=== PATIENT | male | born 1950 | race Caucasian/White ===

== ENCOUNTER 2020-05-06 09:47 | Inpatient (IN) | payer OTHER, SELFPAY ==
[2020-05-06] VITALS (18 sets, daily range): BP systolic 114–161; BP diastolic 66–99; PULSE 50–109; RESP 13–20; TEMP 36.6–37.9; O2SAT 93–98; BMI 31.4
--- NOTE | 2020-05-06 | XR_ITS ---
WS: [id number] C-ARM RADIOGRAPHS LEFT HIP; 3 IMAGES HISTORY: ORIF LT HIP RAZIA IMAGES COMPARISON: 05/06/2020 Intraoperative imaging during short intramedullary plate and gamma nail placement LEFT intertrochante erich hip fracture. Fracture in good position and alignment. XR/XR hip LT 2-3V wo/w pel* [id number] IMPRESSION: Intraoperative imaging during ORIF LEFT hip fracture.
--- NOTE | 2020-05-06 | SCC_ITS ---
Procedure Done: Closed reduction with intramedullary nailing left intertrochanteric hip fracture 68.0 seconds of fluoroscopic guidance, for a cumulative dose of 14.54 mGy, was provided to Dr. Sandoval by the radiology department. C-arm images of the LEFT hip were saved for the patient's permanent record. [facility]
--- NOTE | 2020-05-06 10:10 | XRR_ITS ---
PROCEDURE INFORMATION: Exam: XR Left Femur Exam date and time: 05/06/2020 11:53 AM Age: 69 years old Clinical indication: Injury or trauma; Initial encounter; Blunt trauma; Hip and thigh or upper leg and knee; Left; Injury date: 05/06/20; Injury details: Fall from ladder TECHNIQUE: Imaging protocol: XR Left femur. Views: 2 views. COMPARISON: No relevant prior studies available. FINDINGS: Bones/joints: Acute comminuted ntratrochanteric fracture of the proximal left femur, with marked varus deformity. Left knee arthroplasty. Degenerative change. Soft tissues: Soft tissue prominence. XR/XR femur LT min 2V* [id number] IMPRESSION: Acute comminuted ntratrochanteric fracture of the proximal left femur, with marked varus deformity.
--- NOTE | 2020-05-06 10:10 | XRR_ITS ---
PROCEDURE INFORMATION: Exam: XR Left Hip with Pelvis when Performed Exam date and time: 05/06/2020 11:55 AM Age: 69 years old Clinical indication: Pain and injury or trauma; Initial encounter; Blunt trauma (contusions or hematomas); Hip pain; Left hip; Injury date: 05/06/20; Injury details: Fall from ladder TECHNIQUE: Imaging protocol: XR Left hip with pelvis when performed. Views: 2 or 3 views. COMPARISON: No relevant prior studies available. FINDINGS: Bones/joints: Acute comminuted ntratrochanteric fracture of the proximal left femur, with marked varus deformity. Degenerative change. Soft tissues: Soft tissue prominence. XR/XR hip LT 2-3V wo/w pel* [id number] IMPRESSION: Acute comminuted ntratrochanteric fracture of the proximal left femur, with marked varus deformity.
--- NOTE | 2020-05-06 10:10 | XRR_ITS ---
PROCEDURE INFORMATION: Exam: XR Cervical Spine, 2 or 3 Views Exam date and time: 05/06/2020 11:55 AM Age: 69 years old Clinical indication: Injury or trauma; Initial encounter; Blunt trauma; Injury date: 05/06/20; Injury details: Fall from ladder TECHNIQUE: Imaging protocol: XR of the cervical spine, 2 or 3 views. COMPARISON: No relevant prior studies available. FINDINGS: Vertebrae: Partial obscuration of the C6 and C7 vertebrae. No acute bony injury or malalignment in the incompletely visualized cervical spine. Degenerative change and diminished cervical lordosis. Soft tissues: Ligamentous calcification. XR/XR cervical spine 3V* [id number] IMPRESSION: Partial obscuration of the C6 and C7 vertebrae. No acute bony injury or malalignment in the incompletely visualized cervical spine.
--- NOTE | 2020-05-06 10:10 | XRR_ITS ---
PROCEDURE INFORMATION: Exam: XR Chest, 1 View Exam date and time: 05/06/2020 11:53 AM Age: 69 years old Clinical indication: Injury or trauma; Initial encounter; Blunt trauma (contusions or hematomas); Injury date: 05/06/20; Injury details: Fall from ladder TECHNIQUE: Imaging protocol: XR of the chest Views: 1 view. COMPARISON: CT chest w con* [id number] 04/10/2017 9:48 AM FINDINGS: Lungs: No acute airspace disease. Pleural space: No pleural effusion. Heart/Mediastinum: No cardiomegaly. Bones/joints: Osteopenia and degenerative change. XR/XR chest 1V portable [id number] IMPRESSION: No acute airspace or pleural disease.
--- NOTE | 2020-05-06 10:10 | XRR_ITS ---
PROCEDURE INFORMATION: Exam: XR Left Knee Exam date and time: 05/06/2020 11:55 AM Age: 69 years old Clinical indication: Pain and injury or trauma; Fall; Initial encounter; Blunt trauma; Knee; Left; Injury date: 05/06/20 TECHNIQUE: Imaging protocol: XR Left knee. Views: 3 views. COMPARISON: No relevant prior studies available. FINDINGS: Bones/joints: Left knee arthroplasty. No acute bony injury or malalignment. Soft tissues: Unremarkable. XR/XR knee LT 3V* [id number] IMPRESSION: No acute bony injury or malalignment.
--- NOTE | 2020-05-06 10:12 | W.ED.EXTPRO ---
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 He was employee. He is complaining of left hip pain there is no obvious deformity external rotation and shortening of the hip. There is a fullness in the proximal femur and swelling. No loss consciousness he did not strike his head he denies any other injuries or pain anywhere else he has no neck pain. Interestingly he mentioned that he was recently seen in [place] at the [facility] he had some abdominal pain is been chronic and is being set up for endoscopy but is not been fully scheduled yet. MD Complaint: extremity pain Onset (ago): minute(s) Pain Consistency: constant Location: left Severity scale (1-10): 10 Quality: sharp Radiation: none Relieving factors: immobilization Exacerbating factors: other Associated symptoms: Reports no associated symptoms; Deny chest pain, fever(s) or rash Context: other (Fall at work) Review of Systems Const: Denies: fever(s), chills, body aches, change in appetite, fatigue or malaise ENMT: Denies: throat pain, ear or mastoid pain, nasal discharge or nasal congestion Card: Denies: chest pain, edema, dyspnea on exertion or orthopnea Resp: Denies: dyspnea, productive cough or non-productive cough GI: Denies: abdominal pain, nausea, vomiting, hematemesis, coffee ground emesis, diarrhea, constipation, bloating, hematochezia or melena : Denies: flank pain, dysuria, urinary frequency or urinary urgency Skin/Breast: Denies: rash or pruritus PFSH ED PFSH: Medical History (Updated 05/16/20 @ 09:08 by Jerel Ch DO) COPD (chronic obstructive pulmonary disease) Diabetes mellitus Essential tremor Hyperlipidemia Hypertension Intertrochanteric fracture of left hip Postoperative day #2, doing well. Obstructive sleep apnea Surgical History (Updated 05/08/20 @ 07:38 by Rufus Sandoval DO) History of back surgery History of knee surgery Status post-operative repair of closed fracture of left hip Family History Other Diabetes Social History Smoking and tobacco status: never smoked Alcohol intake: current Alcohol intake frequency: 0-2 Drinks per Day Physical Exam Const: COMMON NORMALS: no acute distress GENERAL APPEARANCE: cooperative and comfortable ORIENTATION/CONSCIOUSNESS: Yes awake, Yes oriented to person, Yes oriented to place and Yes oriented to time HENMT: COMMON NORMALS: normocephalic, atraumatic, hearing grossly normal bilaterally, external ears normal, EAC's normal, TM's normal bilaterally, Normal nasal mucous membranes and turbinates present, moist oral mucous membranes and oropharynx normal HEAD & SCALP: normocephalic and atraumatic NOSE: Normal nasal mucous membranes and turbinates present EXTERNAL EAR: Yes external ears normal EXTERNAL AUDITORY CANAL: EAC's normal TYMPANIC MEMBRANE: TM's normal bilaterally Eye: COMMON NORMALS: Equal, round and reactive pupils present, EOMs intact bilaterally, conjunctivae normal and no scleral icterus CONJUNCTIVA: Yes conjunctivae normal PUPIL: Yes Equal, round and reactive pupils present Neck/C-Spine: COMMON NORMALS: full ROM, no lymphadenopathy, supple and no JVD Lymph: LYMPHATIC: no lymphadenopathy noted and no lymphedema noted Resp: COMMON NORMALS: normal respiratory effort, No retractions, No use of accessory muscles and clear to auscultation bilaterally AUSCULTATION: clear to auscultation bilaterally Cardio: COMMON NORMALS: no JVD, regular rate, regular rhythm and No murmurs present (Cardio) RATE: regular rate RHYTHM: regular rhythm GI: COMMON NORMALS: Soft to palpation and No hepatosplenomegaly present AUSCULTATION: Yes normoactive bowel sounds PALPATION: Yes Soft to palpation, No Tenderness to palpation present (GI), No Guarding due to palpation present (GI) and Yes No hepatosplenomegaly present Extremity: OTHER: Left foot externally rotated and somewhat shortened per pedal pulses the posterior tibialis and the dorsalis pedis are both normal good vascular flow good capillary refill to the left foot. Neuro: SENSORIUM/ORIENTATION: Yes oriented to person, Yes oriented to place and Yes oriented to time Skin: COMMON NORMALS: no rashes or lesions noted GENERAL SKIN EXAM: no rashes or lesions noted Course Vital Signs: Vital signs: Vital Signs Temperature 98.0 F 05/08/20 16:04 Pulse Rate 78 05/08/20 16:04 Respiratory Rate 20 H 05/08/20 16:04 Blood Pressure 116/70 05/08/20 16:04 Pulse Oximetry 94 05/08/20 16:04 MDM - Extremity (Nontraumatic) MDM Narrative: Medical decision making narrative: X-ray shows left intertrochanteric hip fracture will admit to hospitalist consult orthopedics Dr. Sandoval is on I have discussed with him as well. Lab Data: Labs: Lab Results 05/06/20 05/06/20 05/06/20 Range/Units 10:00 10:00 10:00 WBC 11.5 H (4.0-10.0) 10^3/ uL RBC 4.50 (4.1-5.3) 10^6/u L Hgb 14.1 (11.7-16.6) g/dL Hct 41.8 L (42.0-52.0) % MCV 92.9 (80-94) fL MCH 31.3 (28.0-34.0) pg MCHC 33.7 (30.0-36.0) g/dL RDW 12.8 (12.1-15.1) % Plt Count 255 (130-400) 10^3/c mm MPV 10.4 (7.4-10.4) fL Neut % (Auto) 76.5 % Lymph % (Auto) 13.6 % Stephenson % (Auto) 7.5 % Eos % (Auto) 1.1 % Baso % (Auto) 0.6 % Neut # (Auto) 8.8 H (1.8-7.7) 10^3/u L Lymph # (Auto) 1.6 (0.8-4.8) 10^3/u L Stephenson # (Auto) 0.9 (0.2-0.9) 10^3/u L Eos # (Auto) 0.1 (0.0-0.8) 10^3/u L Baso # (Auto) 0.1 (0.0-0.1) 10^3/u L Nucleated RBC % (a uto) 0 % Nucleated RBCs # 0.0 /100WBC PT 13.30 (10.5-13.3) SECO NDS INR 0.98 (0.8-1.2) APTT 27.7 (23.9-36.7) SECO NDS Sodium 138 (136-145) mmol/L Potassium 3.8 (3.5-5.1) mmol/L Chloride 103 (98-107) mmol/L Carbon Dioxide 24 (22-29) mmol/L Anion Gap 14.8 (5-19) BUN 10 (8-23) mg/dL Creatinine 0.8 (0.7-1.2) mg/dL GFR Calculation 95.6 (90-130) mL/min Glucose 238 H (65-115) mg/dL Calculated Osmolal ity 290 (285-295) mOsm/k g Calcium 9.1 (8.5-10.5) mg/dL Total Bilirubin 0.3 (0.15-1.2) mg/dL AST 19 (0-40) U/L ALT 17 (0-41) U/L Alkaline Phosphata se 48 (40-130) IU/L Total Protein 6.7 (6.6-8.7) g/dL Albumin 4.2 (3.5-5.2) g/dL Globulin 2.5 (1.3-4.6) g/dL Urine Color (Yellow) Urine Appearance (CLEAR) Urine pH (5-7) Ur Specific Gravit y (1.005-1.030) Urine Protein (Negative) Urine Glucose (UA) (Normal) Urine Ketones (Negative) Urine Blood (Negative) Urine Nitrate (Negative) Urine Bilirubin (NEGATIVE) Urine Urobilinogen (Negative) mg/dL Ur Leukocyte Mag ase (Negative) Urine RBC (0-2) /hpf Urine WBC (0-5) /hpf Ur Squamous Epith Cells (0-5) Amorphous Sediment Urine Bacteria (NONE) Blood Type Rho(D) Type Antibody Screen 05/06/20 05/06/20 Range/Units 10:20 10:50 WBC (4.0-10.0) 10^3/ uL RBC (4.1-5.3) 10^6/u L Hgb (11.7-16.6) g/dL Hct (42.0-52.0) % MCV (80-94) fL MCH (28.0-34.0) pg MCHC (30.0-36.0) g/dL RDW (12.1-15.1) % Plt Count (130-400) 10^3/c mm MPV (7.4-10.4) fL Neut % (Auto) % Lymph % (Auto) % Stephenson % (Auto) % Eos % (Auto) % Baso % (Auto) % Neut # (Auto) (1.8-7.7) 10^3/u L Lymph # (Auto) (0.8-4.8) 10^3/u L Stephenson # (Auto) (0.2-0.9) 10^3/u L Eos # (Auto) (0.0-0.8) 10^3/u L Baso # (Auto) (0.0-0.1) 10^3/u L Nucleated RBC % (a uto) % Nucleated RBCs # /100WBC PT (10.5-13.3) SECO NDS INR (0.8-1.2) APTT (23.9-36.7) SECO NDS Sodium (136-145) mmol/L Potassium (3.5-5.1) mmol/L Chloride (98-107) mmol/L Carbon Dioxide (22-29) mmol/L Anion Gap (5-19) BUN (8-23) mg/dL Creatinine (0.7-1.2) mg/dL GFR Calculation (90-130) mL/min Glucose (65-115) mg/dL Calculated Osmolal ity (285-295) mOsm/k g Calcium (8.5-10.5) mg/dL Total Bilirubin (0.15-1.2) mg/dL AST (0-40) U/L ALT (0-41) U/L Alkaline Phosphata se (40-130) IU/L Total Protein (6.6-8.7) g/dL Albumin (3.5-5.2) g/dL Globulin (1.3-4.6) g/dL Urine Color Yellow (Yellow) Urine Appearance Clear (CLEAR) Urine pH 5.0 (5-7) Ur Specific Gravit y 1.020 (1.005-1.030) Urine Protein Neg (Negative) Urine Glucose (UA) 2+ (Normal) Urine Ketones Negative (Negative) Urine Blood 2+ H (Negative) Urine Nitrate Negative (Negative) Urine Bilirubin Neg (NEGATIVE) Urine Urobilinogen Norm (Negative) mg/dL Ur Leukocyte Mag ase Negative (Negative) Urine RBC 0-4 H (0-2) /hpf Urine WBC None (0-5) /hpf Ur Squamous Epith Cells 0-4 H (0-5) Amorphous Sediment Not Reportable Urine Bacteria 2+ H (NONE) Blood Type A Negative Rho(D) Type Negative Antibody Screen Negative Discharge Plan Discharge Admit Provider: Aaron Villatoro Clinical Impression: Closed intertrochanteric fracture of left hip, Diabetes mellitus, Hypertension Condition: Stable Discharge Orders: Discharge Order (Routine); Ordered 05/08/20 Ordered By: Rufus Sandoval Discharge Diet: Diabetic Discharge Activity: Limit activity as instructed and Use walker/crutches as instructed Interventions: ED Discharge Assessment Last Done: 05/06/20 12:13 ED Charges Last Done: 05/06/20 12:13 Discharge Date/Time: 05/06/20 12:37 Coding Level of Care Code ED Collar Closer Lockstitch for Jose Fwd Exam Comprehensive
[2020-05-06 10:33] LABS: Basophils # 0.1 10^3/uL (0.0-0.1); Basophils % 0.6 %; Eosinophils # 0.1 10^3/uL (0.0-0.8); Eosinophils % 1.1 %; Hematocrit 41.8 % (42.0-52.0); Hemoglobin 14.1 g/dL (11.7-16.6); Lymphocytes # 1.6 10^3/uL (0.8-4.8); Lymphocytes % 13.6 %; Mean Corpuscular HGB Conc 33.7 g/dL (30.0-36.0); Mean Corpuscular Hemoglobin 31.3 pg (28.0-34.0); Mean Corpuscular Volume 92.9 fL (80-94); Mean Platelet Volume 10.4 fL (7.4-10.4); Monocytes # 0.9 10^3/uL (0.2-0.9); Monocytes % 7.5 %; Neutrophils # 8.8 10^3/uL (1.8-7.7); Neutrophils % 76.5 %; Nucleated Red Blood Cells % 0 %; Platelet Count 255 10^3/cmm (130-400); Red Cell Distribution Width 12.8 % (12.1-15.1); White Blood Count 11.5 10^3/uL (4.0-10.0)
[2020-05-06 10:37] LABS: Alanine Aminotransferase 17 U/L (0-41); Albumin Level 4.2 g/dL (3.5-5.2); Alkaline Phosphatase 48 IU/L (40-130); Anion Gap 14.8 (5-19); Aspartate Amino Transferase 19 U/L (0-40); Blood Urea Nitrogen 10 mg/dL (8-23); Calcium 9.1 mg/dL (8.5-10.5); Carbon Dioxide 24 mmol/L (22-29); Chloride 103 mmol/L (98-107); Globulin 2.5 g/dL (1.3-4.6); Glomerular Filtration Rate 95.6 mL/min (90-130); Glucose 238 mg/dL (65-115); Osmolality Calculated 290 mOsm/kg (285-295); Potassium 3.8 mmol/L (3.5-5.1); Sodium 138 mmol/L (136-145); Total Bilirubin 0.3 mg/dL (0.15-1.2); Total Protein 6.7 g/dL (6.6-8.7)
[2020-05-06] MEDS: morphine 4 mg/mL SDV 1 mL 6 MG IVP (10:38)
[2020-05-06] MEDS: ondansetron 2 mg/ML SDV 2 mL 4 MG IVP (10:39)
[2020-05-06 10:55] LABS: INR 0.98 (0.8-1.2)
[2020-05-06 10:56] LABS: Partial Thromboplastin Time 27.7 SECONDS (23.9-36.7)
[2020-05-06 11:09] LABS: Add Urine Microscopic? YES; Bilirubin Urine Neg (NEGATIVE); Blood Urine 2+ (Negative); Glucose Urine UA 2+ (Normal); Ketones Urine Negative (Negative); Leukocyte Esterase Urine Negative (Negative); Nitrate Urine Negative (Negative); Protein Urine Neg (Negative); Urine Appearance Clear (CLEAR); Urine Color Yellow (Yellow); Urobilinogen Urine Norm (Negative)
[2020-05-06 11:30] LABS: Add Urine Culture? Yes; Bacteria Urine 2+; RBC Urine 0-4 /hpf (0-2); Squamous Epithelial Cell Urine 0-4 (0-5)
--- NOTE | 2020-05-06 12:47 | P.HP_ITS ---
Providers/Chief Complaint Primary Care Provider: Ibis Anne NP Chief Complaint: FALL FROM LADDER History of Present Illness Cory Alvarez is a 69 year old male who presents to the hospital with complaints of hip pain following a fall from the ladder. He reports he was doing some work when he lost his balance. He denies any loss of consciousness, chest pain. He reports he may have hit his head but he denies any headache or nausea. He reports a little bit of abrasion to his left elbow. He denies any recent fevers, COVID exposure. He has been feeling well. He reports he normally can walk up a flight of steps without getting any chest pain. He denies any problems with anesthesia. He does report he has obstructive sleep apnea and does not use CPAP as he should. He does report he does get chest pain on occasion but had a nuclear stress test at [facility] in [place] earlier this year which was without concern. Review of Systems General: Reports: 10 or more systems reviewed and unremarkable except in HPI and below Const: Denies: fever(s) Eyes: Denies: change in vision ENMT: Denies: throat pain Card: Denies: chest pain Resp: Denies: dyspnea GI: Denies: abdominal pain : Denies: flank pain Musc: Reports: extremity pain Skin/Breast: Denies: rash Neuro: Denies: headache(s) Psych: Denies: anxiety Endo: Denies: polyuria Ridge/Lymph: Denies: easy bruising All/Imm: Denies: urticaria Medications/Allergies Home Medications Medication Instructions Recorded Confirmed Last Taken Type aspirin [Aspir-81] 81 mg PO DAILY 05/06/20 05/06/20 05/06/20 History gemfibrozil [Lopid] 600 mg PO BID 05/06/20 05/06/20 05/06/20 History hydrochlorothiazide 12.5 mg PO DAILY 05/06/20 05/06/20 05/06/20 History metformin 250 mg PO BID 05/06/20 05/06/20 Unknown History metoprolol tartrate 25 mg PO BID 05/06/20 05/06/20 05/06/20 History nitroglycerin 0.4 mg SUBLINGUAL PRN MDD chest 05/06/20 05/06/20 Unknown History pain omeprazole magnesium [Prilosec OTC] 20 mg PO DAILY 07/06/1805/06/20 05/05/20 History primidone 50 mg PO BID 05/06/20 05/06/20 05/06/20 History Allergies Allergy/AdvReac Type Severity Reaction Status Date / Time No Known Allergies Allergy Verified 05/06/20 12:31 PFSH Acute PFSH: Medical History (Updated 05/06/20 @ 13:04 by Rufus Sandoval DO) COPD (chronic obstructive pulmonary disease) Diabetes mellitus Essential tremor Hyperlipidemia Hypertension Intertrochanteric fracture of left hip Obstructive sleep apnea Surgical History History of back surgery History of knee surgery Family History (Updated 05/06/20 @ 12:49 by Aaron Villatoro MD) Other Diabetes Social History (Updated 05/06/20 @ 12:50 by Aaron Villatoro MD) Smoking and tobacco status: never smoked Alcohol intake: current Alcohol intake frequency: 0-2 Drinks per Day Substance/Drug Use: never Supplemental PFSH Information: Chews tobacco Vitals/I&O/Wt Last Vital Signs Temp 100.2 F H 05/06/20 12:40 Pulse 86 05/06/20 12:40 Resp 18 05/06/20 12:40 BP 144/92 05/06/20 12:40 Pulse Ox 96 05/06/20 12:40 Weight last 48 hrs Weight 105.233 kg Physical Exam Narrative: EXAM NARRATIVE: General exam is an adult obese male in no apparent distress HEENT: Pupils equally round. Oropharynx clear. Neck is supple no lymphadenopathy or thyromegaly Cardiovascular regular rate and rhythm without murmur. No S3 or S4. Lungs are clear no wheezing or crackles. Abdomen is soft with positive bowel sounds. No obvious organomegaly was deferred Extremities show no cyanosis clubbing nor edema Skin no rash Neuro no focal deficits Urinary Catheter Management^: Tong: Cath Placed During This Visit: yes Reason for Continuing Indwelling Catheter: Not indwelling catheter Urinary Catheter Date of Insertion: 05/06/20 Urinary Catheter Time of Insertion: 11:05 Data : 05/06/20 10:00 05/06/20 10:00 Other data: Femur x-ray demonstrates left femur intertrochanteric fracture Cervical spine shows no obvious fracture. I do not see that an EKG has been done. A&P Assessment and plan (1) Left femoral shaft fracture: Orthopedic consultation for definitive care Status: Acute (2) Fall: Patient denies loss of consciousness, other significant injury Status: Acute Additional A&P Information Hypertension, continue home medications Type 2 diabetes, sliding scale insulin Hyperlipidemia, continue home medications GERD. Substitute Protonix Essential tremor Full code Anticoagulation with Lovenox following surgery. Precluding severe abnormality on EKG there does not appear to be any direct contraindications for surgery. Attestations Medical Necessity Statement*: Will need greater than 2 midnight stay for evaluation and treatment of hip fracture Time Spent in Patient Care: Greater than 35 minutes Coding Level of Care Code Acute Business Development Agent for Jose Seymour Diagnoses Left femoral shaft fracture S72.302A Fall W19.XXXA
--- NOTE | 2020-05-06 12:52 | ECG_ITS ---
[facility] Test Date: 2020-05-06 Pat Name: Cory Alvarez Department: Room: Gender: Male Receptionist Secretary: : 1950 Requested By: Aaron Monte Order Number: [id number] Jadyn MD: Jacy Coyle M.D. Measurements Intervals [place] Rate: 83 P: 37 KS: 170 QRS: -11 QRSD: 93 T: 44 QT: 401 QTc: 473 Interpretive Statements SINUS RHYTHM WITH OCCASIONAL VENTRICULAR PREMATURE COMPLEXES WITH FREQUENT SUPRAVENTRICULAR PREMATURE COMPLEXES NONSPECIFIC ST & T-WAVE ABNORMALITY ABNORMAL RHYTHM ECG No previous ECG available for comparison Electronically Signed On 05-07-2020 17:23:28 CDT by Jacy Coyle M.D. [email or web address]
--- NOTE | 2020-05-06 13:00 | PM.CONSULT ---
Providers/Reason For Consult Consulting Physican/Specialty*: Rufus Sandoval DO Reason for Consult*: Left hip pain Attending Physician: Aaron Villatoro MD Primary Care Provider: Ibis Anne NP History of Present Illness History of Present Illness Cory Alvarez is a 69 year old male who fell sustaining a left intertrochanteric hip fracture. He was seen in the emergency room orthopedic consultation and hospitalist consultation was requested. Review of Systems Const: Denies: fever(s) or chills Resp: Denies: dyspnea or productive cough GI: Denies: abdominal pain, nausea or vomiting Musc: Reports: joint pain (left hip) Meds/Allergies Home Medications and Allergies Home Medications Medication Instructions Recorded Confirmed Last Taken Type aspirin [Aspir-81] 81 mg PO DAILY 05/06/20 05/06/20 05/06/20 History gemfibrozil [Lopid] 600 mg PO BID 05/06/20 05/06/20 05/06/20 History hydrochlorothiazide 12.5 mg PO DAILY 05/06/20 05/06/20 05/06/20 History metformin 250 mg PO BID 05/06/20 05/06/20 Unknown History metoprolol tartrate 25 mg PO BID 05/06/20 05/06/20 05/06/20 History nitroglycerin 0.4 mg SUBLINGUAL PRN MDD chest 05/06/20 05/06/20 Unknown History pain omeprazole magnesium [Prilosec OTC] 20 mg PO DAILY 05/06/20 05/06/20 05/05/20 History primidone 50 mg PO BID 05/06/20 05/06/20 05/06/20 History Allergies Allergy/AdvReac Type Severity Reaction Status Date / Time No Known Allergies Allergy Verified 05/06/20 12:31 PFSH Acute PFSH: Medical History COPD (chronic obstructive pulmonary disease) Diabetes mellitus Essential tremor Hyperlipidemia Hypertension Obstructive sleep apnea Surgical History History of back surgery History of knee surgery Family History Other Diabetes Social History Smoking and tobacco status: never smoked Alcohol intake: current Alcohol intake frequency: 0-2 Drinks per Day Substance/Drug Use: never Vitals/I&O/Wt Last Vital Signs Temp 100.2 F H 05/06/20 12:40 Pulse 86 05/06/20 12:40 Resp 18 05/06/20 12:40 BP 144/92 05/06/20 12:40 Pulse Ox 96 05/06/20 12:40 Weight last 48 hrs Weight 232 lb Physical Exam Narrative: EXAM NARRATIVE: 69-year-old white male in no acute distress. BMI 31.5. He is alert and cooperative. Head is normocephalic atraumatic. Neck is supple. Chest is symmetric. Lungs are clear to auscultation. Heart is regular rate and rhythm. Abdomen is soft and nontender. Examination of the left lower extremity shows it to be shortened externally rotated compared to the right. No calf tenderness bilaterally. Urinary Catheter Management^: Tong: Cath Placed During This Visit: yes Reason for Continuing Indwelling Catheter: Not indwelling catheter Urinary Catheter Date of Insertion: 05/06/20 Urinary Catheter Time of Insertion: 11:05 A&P Assessment and plan (1) Intertrochanteric fracture of left hip: Plan will be to take the patient to surgery for close reduction with intramedullary nailing of left intertrochanteric hip fracture. Risk, benefits potential complications of surgery discussed with the patient. His son was in attendance. Risks include are not limited to failure the fracture to heal potential cut out or breakage of implants, infection, nerve/blood vessel/injury. Medical complications can include blood clots, heart attack, stroke risk up to including . All questions were answered patient agreeable to proceed with surgery. Status: Acute Consult Attestations Medical Necessity Statement: Patient will require at least 2 overnight stays in the hospital. Time Spent in Patient Care: 16 - 35 minutes Coding Level of Care Code Acute Aircraft Cabin Cleaner for Jose Seymour Diagnoses Intertrochanteric fracture of left hip S72.142A
--- NOTE | 2020-05-06 13:04 | P.ANESASSM_ITS ---
Pre-Anesthetic Assessment Pre-Anesthetic Assessment: Height/Weight: Height 1.83 m Weight 105.233 kg Temp Pulse Resp BP Pulse Ox 100.2 F H 86 18 144/92 96 05/06/20 12:40 05/06/20 12:40 05/06/20 12:40 05/06/20 12:40 05/06/20 12:40 Proposed Procedure: Operation Date: 05/06/20 14:10 Proposed Procedures p Trochanteric Femoral Nail(Left) - Rufus Sandoval DO Last intake: Intake Last Liquid Date 05/06/20 Last Liquid Time 07:45 Last Solid Date 05/06/20 Last Solid Time 06:30 Social: Social History: Alcohol (occ) and No tobacco Exam: Pre-Anes Outpt Exam: alert, oriented x 3, clear to auscultation bilaterally and regular rate & rhythm Airway: Submandibular: WNL Cervical ROM: WNL MP: 2 Dentition: False (upper and lower) History/ROS: No significant history except as noted Pulmonary: Pulmonary: COPD, [place] and Sleep apnea CV/HEM: CV/HEM: HTN Comments: stress induced angina : : None reported Hepatic: Hepatic: None reported GI: GI: GERD (controlled) Metabolic: Metabolic: DM, Hyperlipidemia and Morbid obesity Musc/skel: Musc/skel: Lower Back Pain and OA/DJD Neuropsych: Comments: essental tremor Anesthetic Plan: ASA status: 3 Anesthesia: Anesthesia Evaluation and General Risk of > 500 ml blood loss (7ml/kg in children): Yes, adequate IV access and fluids planned PFSH Anesthesia PFSH: Medical History COPD (chronic obstructive pulmonary disease) Diabetes mellitus Essential tremor Hyperlipidemia Hypertension Obstructive sleep apnea Surgical History History of back surgery History of knee surgery Family History Other Diabetes Social History Smoking and tobacco status: never smoked Alcohol intake: current Alcohol intake frequency: 0-2 Drinks per Day Substance/Drug Use: never Supplemental PFSH Information: Chews tobacco Data Anesthesia CBC & Chem 7: 05/06/20 10:00 05/06/20 10:00 Other Labs: Laboratory Results - last 48 hr 05/06/20 05/06/20 05/06/20 10:00 10:00 10:00 WBC 11.5 H RBC 4.50 Hgb 14.1 Hct 41.8 L MCV 92.9 MCH 31.3 MCHC 33.7 RDW 12.8 Plt Count 255 MPV 10.4 Neut % (Auto) 76.5 Lymph % (Auto) 13.6 [place] % (Auto) 7.5 Eos % (Auto) 1.1 Baso % (Auto) 0.6 Neut # (Auto) 8.8 H Lymph # (Auto) 1.6 [place] # (Auto) 0.9 Eos # (Auto) 0.1 Baso # (Auto) 0.1 Nucleated RBC % (auto) 0 Nucleated RBCs # 0.0 PT 13.30 INR 0.98 APTT 27.7 Sodium 138 Potassium 3.8 Chloride 103 Carbon Dioxide 24 Anion Gap 14.8 BUN 10 Creatinine 0.8 GFR Calculation 95.6 Glucose 238 H Calculated Osmolality 290 Calcium 9.1 Total Bilirubin 0.3 AST 19 ALT 17 Alkaline Phosphatase 48 Total Protein 6.7 Albumin 4.2 Globulin 2.5 Urine Color Urine Appearance Urine pH Ur Specific [place] Urine Protein Urine Glucose (UA) Urine Ketones Urine Blood Urine Nitrate Urine Bilirubin Urine Urobilinogen Ur Leukocyte Esterase Urine RBC Urine WBC Ur Squamous Epith Cells Amorphous Sediment Urine Bacteria Blood Type Rho(D) Type Antibody Screen 05/06/20 05/06/20 10:20 10:50 WBC RBC Hgb Hct MCV MCH MCHC RDW Plt Count MPV Neut % (Auto) Lymph % (Auto) [place] % (Auto) Eos % (Auto) Baso % (Auto) Neut # (Auto) Lymph # (Auto) [place] # (Auto) Eos # (Auto) Baso # (Auto) Nucleated RBC % (auto) Nucleated RBCs # PT INR APTT Sodium Potassium Chloride Carbon Dioxide Anion Gap BUN Creatinine GFR Calculation Glucose Calculated Osmolality Calcium Total Bilirubin AST ALT Alkaline Phosphatase Total Protein Albumin Globulin Urine Color Yellow Urine Appearance Clear Urine pH 5.0 Ur Specific [place] 1.020 Urine Protein Neg Urine Glucose (UA) 2+ Urine Ketones Negative Urine Blood 2+ H Urine Nitrate Negative Urine Bilirubin Neg Urine Urobilinogen Norm Ur Leukocyte Esterase Negative Urine RBC 0-4 H Urine WBC None Ur Squamous Epith Cells 0-4 H Amorphous Sediment Not Reportable Urine Bacteria 2+ H Blood Type A Negative Rho(D) Type Negative Antibody Screen Negative Cardiac Studies: No Data to Display
--- NOTE | 2020-05-06 13:08 | PM.OP ---
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 Risk, benefits and potential complications of surgery been discussed with the patient. Is agreeable to proceed with surgery. (See orthopedic consultation this date) Procedure: 25? neck angle 11 mm diameter by 180 mm 10.5 x 105 mm lag screw 5 x 42.5 distal interlocking screw Patient identified. Surgical site signed. Surgical permit signed. Patient received 2 g of Ancef intravenously for surgical prophylaxis. Patient was placed under general anesthesia while in his hospital bed and then transferred to the fracture table and position for left hip surgery. The affected limb was adducted, internally rotated and placed in traction. Flouroscopic imaging in AP and lateral images showed satisfactory reduction of the patient's hip fracture. The patient was sterilely prepped and draped usual fashion. A timeout was performed. A 6 cm incision was made just proximal to the tip of the greater trochanter in line with the long axis of the femur. Dissection was carried down sharply with knife through skin,subcutaneous tissue and the fascia vick down to the tip of the greater trochanter. The initial guidewire was placed at the greater trochanteric starting point under fluoroscopic guidance and then advanced into the intramedullary canal. The opening drill reamer was then used to create the starting point for the gamma nail insertion. An 11 mm diameter by 180mm mm by 125 degree neck angle Gamma nail was inserted through the starting point. A 2 cm incision was made for insertion of the lag screw. Depth of insertion as well as version was then assessed using fluoroscopic imaging and by inserting the short guidewire for the lag screw. Once satisfied with depth of insertion and inversion the guidewire was advanced under fluoroscopic imaging to the appropriate depth. Depth of insertion measured 95 mm, I opted to insert a 105 mm length by 10.5 mm diameter lag screw. Drill reamer was used to ream to 105 mm and the lag screw was inserted. The lag screw was locked into position with a set screw and the set screw was loosened 1/4 turn to allow compression at the fracture site. Traction was taken off of the left leg and the fracture site was compressed. A single distal interlocking screw was inserted using the guide and cannulated sleeves after making a third longitudinal incision 1 cm in length along the long axis of the femur. The distal interlocking hole in the nail. Fluoroscopic imaging was used to verify that the drill bit indeed went through the appropriate hole. A depth gauge was used. A 5 mm x 42.5 mm distal interlocking screw was then inserted without difficulty. Fluoroscopic imaging was used to verify the placement of all implants. Reduction of the fracture and placement of implants was found to be satisfactory on AP and lateral fluoroscopic imaging. The wounds were irrigated with Betadine-containing saline solution and antibiotic containing saline solution. FloSeal was placed in the proximal incision for additional hemostasis. The wounds were closed in layers with Susy and Dermabond on skin. 20 mL of a one-to-one mixture of 1% lidocaine half percent Marcaine with epinephrine were injected into the incision sites. Sterile dressings were applied. The patient was taken off of the fracture table transferred to his hospital bed extubated and taken to the recovery room. All counts were correct. Patient tolerated procedure well.
[2020-05-06] MEDS: fentaNYL 50 mcg/mL INJ 2mL IVP (14:53)
--- NOTE | 2020-05-06 17:26 | SUR.OPER ---
Son notified of start of surgery at 1711.
[2020-05-06 21:12] LABS: Glucose Point of Care 200 mg/dL (70-110)
[2020-05-06] MEDS: oxyCODONE-APAP 5-325 mg Tablet 1 TAB PO (21:36)
[2020-05-06] MEDS: sodium chloride 0.9% 1,000 ML 100 ML IV (21:36)
[2020-05-06] MEDS: gemfibrozil 600 mg Tablet PO (21:37)
[2020-05-06] MEDS: metoprolol tartrate 25 mg Tablet PO (21:37)
[2020-05-06] MEDS: chlorhexidine gluconate 0.12% Btl 473 mL 30 ML MUCOUS MEM (22:00)
[2020-05-07] VITALS (10 sets, daily range): BP systolic 108–120; BP diastolic 62–80; PULSE 79–97; RESP 16–20; TEMP 36.2–37.4; O2SAT 92–97
[2020-05-07] MEDS: oxyCODONE-APAP 5-325 mg Tablet 1 TAB PO ×4 (02:19→18:11)
[2020-05-07 04:07] LABS: Basophils % 0.2 %; Eosinophils % 0.3 %; Hematocrit 34.8 % (42.0-52.0); Hemoglobin 11.6 g/dL (11.7-16.6); Lymphocytes # 1.4 10^3/uL (0.8-4.8); Lymphocytes % 9.4 %; Mean Corpuscular HGB Conc 33.3 g/dL (30.0-36.0); Mean Corpuscular Hemoglobin 31.3 pg (28.0-34.0); Mean Corpuscular Volume 93.8 fL (80-94); Mean Platelet Volume 10.1 fL (7.4-10.4); Monocytes # 1.3 10^3/uL (0.2-0.9); Monocytes % 8.9 %; Neutrophils # 11.58 10^3/uL (1.8-7.7); Neutrophils % 80.7 %; Nucleated Red Blood Cells % 0 %; Platelet Count 196 10^3/cmm (130-400); Red Blood Count 3.71 10^6/uL (4.1-5.3); Red Cell Distribution Width 13.2 % (12.1-15.1); White Blood Count 14.4 10^3/uL (4.0-10.0)
[2020-05-07 04:34] LABS: Alanine Aminotransferase 13 U/L (0-41); Albumin Level 3.8 g/dL (3.5-5.2); Alkaline Phosphatase 36 IU/L (40-130); Anion Gap 12.6 (5-19); Aspartate Amino Transferase 22 U/L (0-40); Blood Urea Nitrogen 7 mg/dL (8-23); Calcium 8.6 mg/dL (8.5-10.5); Carbon Dioxide 27 mmol/L (22-29); Chloride 99 mmol/L (98-107); Globulin 2.1 g/dL (1.3-4.6); Glomerular Filtration Rate 133.2 mL/min (90-130); Glucose 178 mg/dL (65-115); Osmolality Calculated 280 mOsm/kg (285-295); Potassium 3.6 mmol/L (3.5-5.1); Sodium 135 mmol/L (136-145); Total Bilirubin 0.8 mg/dL (0.15-1.2); Total Protein 5.9 g/dL (6.6-8.7)
[2020-05-07] MEDS: sodium chloride 0.9% 1,000 ML 100 ML IV (06:15)
[2020-05-07 06:36] LABS: Glucose Point of Care 176 mg/dL (70-110)
[2020-05-07] MEDS: TRAMadol 50 mg Tablet PO (07:53)
[2020-05-07] MEDS: pantoprazole DR 40 mg Tablet PO (09:20)
[2020-05-07] MEDS: gemfibrozil 600 mg Tablet PO ×2 (09:20→18:12)
[2020-05-07] MEDS: calcium carbonate 500 mg Chew Tablet 1000 MG PO ×2 (09:20→18:11)
[2020-05-07] MEDS: multivitamin therapeutic Tablet 1 TAB PO (09:20)
[2020-05-07] MEDS: cholecalciferol (vitamin D3) 1,000 unit Tablet 1000 UNIT PO (09:20)
[2020-05-07] MEDS: iron polysaccharide complex 150 mg Capsule PO ×2 (09:20→18:11)
[2020-05-07] MEDS: sennosides-docusate Tablet 2 TAB PO ×2 (09:20→18:11)
[2020-05-07] MEDS: aspirin 81 mg EC Tablet PO (09:20)
[2020-05-07] MEDS: hydroCHLOROthiazide 25 mg Tablet 12.5 MG PO (09:21)
[2020-05-07] MEDS: metoprolol tartrate 25 mg Tablet PO ×2 (09:21→18:12)
[2020-05-07] MEDS: primidone 50 mg Tablet PO ×2 (09:21→18:12)
[2020-05-07] MEDS: chlorhexidine gluconate 0.12% Btl 473 mL 30 ML MUCOUS MEM ×4 (09:22→21:50)
[2020-05-07 11:06] LABS: Glucose Point of Care 193 mg/dL (70-110)
--- NOTE | 2020-05-07 11:23 | PM.PN ---
Subjective Subjective: Interval history: Treatment reports he is having some pain, but doing okay after surgery. Medications: Reviewed: Yes Vitals/I&O/Wt Last Vital Signs Temp 98.2 F 05/07/20 08:00 Pulse 97 05/07/20 08:49 Resp 18 05/07/20 08:49 BP 116/72 05/07/20 08:00 Pulse Ox 93 05/07/20 08:49 05/06/20 05/07/20 05/07/20 22:59 06:59 14:59 Intake Total 530 / 530 1635 / 2165 360 / 360 Output Total 200 / 200 1150 / 1350 Balance 330 / 330 485 / 815 360 / 360 Weight last 48 hrs Weight 105.233 kg Physical Exam Narrative: EXAM NARRATIVE: General exam no apparent distress Cardiovascular regular rate and rhythm without murmur. No S3 or S4. Lungs are clear no wheezing or crackles. Abdomen is soft with positive bowel sounds. No obvious organomegaly Extremities no cyanosis clubbing or edema Urinary Catheter Management^: Tong: Cath Placed During This Visit: yes, but has since been removed by the nurse Reason for Continuing Indwelling Catheter: Decision to DC Catheter Urinary Catheter Date of Insertion: 05/06/20 Urinary Catheter Time of Insertion: 11:05 Date Urinary Catheter Removed: 05/07/20 Time Urinary Catheter Discontinued: 06:30 Data : 05/07/20 03:40 05/07/20 03:40 Micro: Microbiology 05/06/20 10:50 Urine Culture - Preliminary Urine,Clean Catch A&P Assessment and plan (1) Left femoral shaft fracture: Postoperative day #1 post closed reduction intramedullary nailing Appreciate orthopedic consultation and intervention Status: Acute (2) Fall: Patient denies loss of consciousness, other significant injury Status: Acute Additional A&P Information Acute postoperative blood loss anemia. Mild currently. Hypertension, continue home medications. Blood pressure controlled Type 2 diabetes, sliding scale insulin Hyperlipidemia, continue home medications GERD. Continue Protonix Essential tremor. Continue primidone Full code Eliquis for DVT prophylaxis Attestations Medical Necessity Statement*: Needs continued hospital stay for close monitoring following hip fracture repair Coding Level of Care Code Acute Structural Biologist for Chg Fwd Diagnoses Left femoral shaft fracture S72.302A Fall W19.XXXA
[2020-05-07 16:55] LABS: Glucose Point of Care 151 mg/dL (70-110)
[2020-05-07] MEDS: apixaban 5 mg Tablet 2.5 MG PO (18:12)
--- NOTE | 2020-05-07 19:09 | PM.PN ---
Subjective Subjective: Interval history: 69 yr old white male POD #1 s/p closed reduction with IM nailing of left intertrochanteric hip fracture Vitals/I&O/Wt Last Vital Signs Temp 99.3 F 05/07/20 15:42 Pulse 81 05/07/20 15:42 Resp 18 05/07/20 18:11 BP 108/62 05/07/20 15:42 Pulse Ox 93 05/07/20 15:42 05/07/20 05/07/20 05/07/20 06:59 14:59 22:59 Intake Total 1635 / 2165 410 / 410 480 / 890 Output Total 1150 / 1350 250 / 250 1450 / 1700 Balance 485 / 815 160 / 160 -970 / -810 Weight last 48 hrs Weight 232 lb Physical Exam Narrative: EXAM NARRATIVE: 69 year old white male in no acute distress He is alert and cooperative. He has mild complaints of left hip discomfort. Lungs are clear to auscultation no crackles wheezes or rales heard. Heart is regular rhythm abdomen soft nontender examination of his dressings over the left hip and thigh are intact with no strike through. No calf tenderness bilaterally Urinary Catheter Management^: Joseph: Cath Placed During This Visit: yes, but has since been removed by the nurse Reason for Continuing Indwelling Catheter: Decision to DC Catheter Urinary Catheter Date of Insertion: 05/06/20 Urinary Catheter Time of Insertion: 11:05 Date Urinary Catheter Removed: 05/07/20 Time Urinary Catheter Discontinued: 06:30 Data : 05/08/20 04:08 05/08/20 04:08 Micro: Microbiology 05/06/20 10:50 Urine Culture - Preliminary Urine,Clean Catch A&P Assessment and plan (1) Intertrochanteric fracture of left hip: WBAT D/C joseph VTE prophylaxis with apixanan 2.5 mg po bid for 2 weeks discharge planning--SNF favored as he lives alone pain control Status: Acute Attestations Medical Necessity Statement*: Patient requires continued inpatient level care following IM nailing left intertrochanteric hip frscture Time Spent in Patient Care: less than 15 minutes Coding Level of Care Code Acute Customer Contact Sales Associate for Jose Seymour Diagnoses Intertrochanteric fracture of left hip S72.142A
[2020-05-07 21:26] LABS: Glucose Point of Care 176 mg/dL (70-110)
[2020-05-08] VITALS (8 sets, daily range): BP systolic 104–116; BP diastolic 60–70; PULSE 52–87; RESP 17–20; TEMP 36.6–37.1; O2SAT 93–96
[2020-05-08] MEDS: oxyCODONE-APAP 5-325 mg Tablet 1 TAB PO ×3 (03:16→16:00)
[2020-05-08] MEDS: acetaminophen 325 mg Tablet 650 MG PO (04:05)
[2020-05-08] MEDS: TRAMadol 50 mg Tablet PO (04:06)
[2020-05-08 05:02] LABS: Basophils % 0.3 %; Eosinophils # 0.2 10^3/uL (0.0-0.8); Eosinophils % 1.4 %; Hematocrit 32.1 % (42.0-52.0); Hemoglobin 10.5 g/dL (11.7-16.6); Lymphocytes # 1.5 10^3/uL (0.8-4.8); Lymphocytes % 12.3 %; Mean Corpuscular HGB Conc 32.7 g/dL (30.0-36.0); Mean Corpuscular Hemoglobin 30.8 pg (28.0-34.0); Mean Corpuscular Volume 94.1 fL (80-94); Mean Platelet Volume 10.6 fL (7.4-10.4); Monocytes # 1.2 10^3/uL (0.2-0.9); Monocytes % 9.7 %; Neutrophils # 9.43 10^3/uL (1.8-7.7); Neutrophils % 75.9 %; Nucleated Red Blood Cells % 0 %; Platelet Count 197 10^3/cmm (130-400); Red Blood Count 3.41 10^6/uL (4.1-5.3); White Blood Count 12.4 10^3/uL (4.0-10.0)
[2020-05-08 05:31] LABS: Anion Gap 13.4 (5-19); Blood Urea Nitrogen 10 mg/dL (8-23); Calcium 8.7 mg/dL (8.5-10.5); Carbon Dioxide 27 mmol/L (22-29); Chloride 99 mmol/L (98-107); Glomerular Filtration Rate 133.2 mL/min (90-130); Glucose 169 mg/dL (65-115); Osmolality Calculated 282 mOsm/kg (285-295); Potassium 3.4 mmol/L (3.5-5.1); Sodium 136 mmol/L (136-145)
[2020-05-08 06:46] LABS: Glucose Point of Care 143 mg/dL (70-110)
--- NOTE | 2020-05-08 07:36 | PM.PN ---
Subjective Subjective: Interval history: 69 y/o white male POD #2 s/p closed reduction with IM nailing left intertrochanteric hip fracture. Mild complaints of pain. Still not independent with transfers. States is still unable to perform a straight leg raise with the left lower extremity which is not surprising following his hip surgery. Vitals/I&O/Wt Last Vital Signs Temp 98.8 F 05/08/20 04:00 Pulse 87 05/08/20 04:00 Resp 18 05/08/20 04:00 BP 104/60 05/08/20 04:00 Pulse Ox 96 05/08/20 04:00 05/07/20 05/08/20 05/08/20 22:59 06:59 14:59 Intake Total 540 / 950 240 / 1190 Output Total 1750 / 2000 1000 / 3000 Balance -1210 / -1050 -760 / -1810 Weight last 48 hrs Weight 232 lb Physical Exam Narrative: EXAM NARRATIVE: 69 y/o white male VSS, afebrile Patient is in no acute distress. He is alert cooperative. Lungs are clear to auscultation. Heart is regular rhythm Abdomen soft nontender I removed his dressings from the left hip and thigh region. His incisions which were closed on skin with giuseppe and skin glue are intact with no drainage no evidence of infection. [place] dressings were applied. No calf tenderness bilaterally. To have the patient does state that his chair using his walker to go to nurses as well as myself to get him in a standing position which is able to do so and tolerated well for dressing change. We then assist him in to seated position once again in the chair at the bedside. WBC trending down Hgb stable--10.5 no need for xfusion Urine C&S no growth Urinary Catheter Management^: Tong: Cath Placed During This Visit: yes, but has since been removed by the nurse Reason for Continuing Indwelling Catheter: Decision to DC Catheter Urinary Catheter Date of Insertion: 05/06/20 Urinary Catheter Time of Insertion: 11:05 Date Urinary Catheter Removed: 05/07/20 Time Urinary Catheter Discontinued: 06:30 Data : 05/08/20 04:08 05/08/20 04:08 Micro: Microbiology 05/06/20 10:50 Urine Culture - Preliminary Urine,Clean Catch A&P Assessment and plan (1) Intertrochanteric fracture of left hip: Dressing change today incisions were intact continue Eliquis 2.5 mg po for 14 days post op WBAT left lower extremity discharge to snf when deemed medially stable f/u with me in office in 2 weeks for wound check, staple removel and f/u xrays Status: Acute (2) Status post-operative repair of closed fracture of left hip: Status: Acute (3) Fall: Status: Acute Attestations Medical Necessity Statement*: Per medical team recommendations. Time Spent in Patient Care: less than 15 minutes Coding Level of Care Code Acute Spa Assistant Manager for Chg Fwd Diagnoses Intertrochanteric fracture of left hip S72.142A Status post-operative repair of closed fracture of left hip Z98.890; Z87.81 Fall W19.XXXA
[2020-05-08] MEDS: iron polysaccharide complex 150 mg Capsule PO (08:01)
[2020-05-08] MEDS: apixaban 5 mg Tablet 2.5 MG PO (08:01)
[2020-05-08] MEDS: aspirin 81 mg EC Tablet PO (08:01)
[2020-05-08] MEDS: chlorhexidine gluconate 0.12% Btl 473 mL 30 ML MUCOUS MEM (08:02)
[2020-05-08] MEDS: cholecalciferol (vitamin D3) 1,000 unit Tablet 1000 UNIT PO (08:02)
[2020-05-08] MEDS: hydroCHLOROthiazide 25 mg Tablet 12.5 MG PO (08:02)
[2020-05-08] MEDS: calcium carbonate 500 mg Chew Tablet 1000 MG PO (08:02)
[2020-05-08] MEDS: multivitamin therapeutic Tablet 1 TAB PO (08:03)
[2020-05-08] MEDS: sennosides-docusate Tablet 2 TAB PO (08:03)
[2020-05-08] MEDS: pantoprazole DR 40 mg Tablet PO (08:03)
[2020-05-08] MEDS: metoprolol tartrate 25 mg Tablet PO (08:03)
[2020-05-08] MEDS: primidone 50 mg Tablet PO (08:15)
[2020-05-08] MEDS: gemfibrozil 600 mg Tablet PO (08:15)
[2020-05-08] MEDS: potassium chloride ER 10 mEq Tablet 40 MEQ PO (10:26)
--- NOTE | 2020-05-08 10:47 | PM.DCS ---
Discharge Providers Date of Admission: 05/06/20 12:40 Date of Discharge: May 08, 2020 Attending Provider at Admission: Aaron Villatoro MD Attending Provider at Discharge: Aaron Villatoro MD Primary Care Provider: Ibis Anne NP Diagnoses at Discharge Discharge Diagnosis (1) Intertrochanteric fracture of left hip: Status: Acute Problem details: Postoperative day #2, doing well. (2) Status post-operative repair of closed fracture of left hip: Status: Acute (3) Fall: Status: Acute Reason for Visit Reason for Visit: FALL FROM LADDER Hospital Course Hospital Course: Cory is a 69-year-old white male who presented to the hospital after a fall. He sustained a left intertrochanteric hip fracture. He was admitted and orthopedics consulted. They performed closed reduction with intramedullary nailing on May 06 with good result. During the rest of his hospital stay he worked with physical therapy and recovered nicely. He was ready for discharge on May 08. He did have some postoperative acute blood loss anemia, mild, not requiring transfusion. Discharge hemoglobin was 10.5. Physical Exam Narrative: EXAM NARRATIVE: General exam no apparent distress Cardiovascular regular rate and rhythm without murmur Lungs clear Abdomen is soft, positive bowel sounds Extremities no cyanosis clubbing nor edema, incision site clean and dry. Urinary Catheter Management^: Tong: Cath Placed During This Visit: yes, but has since been removed by the nurse Reason for Continuing Indwelling Catheter: Decision to DC Catheter Urinary Catheter Date of Insertion: 05/06/20 Urinary Catheter Time of Insertion: 11:05 Date Urinary Catheter Removed: 05/07/20 Time Urinary Catheter Discontinued: 06:30 Discharge Data Data Completed and Pending: Completed Studies During Hospitalization Category Date Time Status XR cervical spine 3V* [id number] Stat Exams 05/06/20 10:10 Completed XR chest 1V fabian ble [id number] Stat Exams 05/06/20 10:10 Completed XR femur LT min 2 V* [id number] Stat Exams 05/06/20 10:10 Completed XR hip LT 2-3V wo /w pel* [id number] Rout ine Exams 05/06/20 Completed XR hip LT 2-3V wo /w pel* [id number] Stat Exams 05/06/20 10:10 Completed XR knee LT 3V* [id number] Stat Exams 05/06/20 10:10 Completed Labs from last 24 hours 05/08/20 05/08/20 05/08/20 06:42 04:08 04:08 WBC 12.4 H RBC 3.41 L Hgb 10.5 L Hct 32.1 L MCV 94.1 H MCH 30.8 MCHC 32.7 RDW 13.0 Plt Count 197 MPV 10.6 H Neut % (Auto) 75.9 Lymph % (Auto) 12.3 [place] % (Auto) 9.7 Eos % (Auto) 1.4 Baso % (Auto) 0.3 Neut # (Auto) 9.43 H Lymph # (Auto) 1.5 [place] # (Auto) 1.2 H Eos # (Auto) 0.2 Baso # (Auto) 0.0 Nucleated RBC % (a uto) 0 Nucleated RBCs # 0.0 Sodium 136 Potassium 3.4 L Chloride 99 Carbon Dioxide 27 Anion Gap 13.4 BUN 10 Creatinine 0.6 L GFR Calculation 133.2 H Glucose 169 H POC Glucose 143 Calculated Osmolal ity 282 L Calcium 8.7 05/07/20 05/07/20 05/07/20 21:22 16:52 11:02 WBC RBC Hgb Hct MCV MCH MCHC RDW Plt Count MPV Neut % (Auto) Lymph % (Auto) [place] % (Auto) Eos % (Auto) Baso % (Auto) Neut # (Auto) Lymph # (Auto) [place] # (Auto) Eos # (Auto) Baso # (Auto) Nucleated RBC % (a uto) Nucleated RBCs # Sodium Potassium Chloride Carbon Dioxide Anion Gap BUN Creatinine GFR Calculation Glucose POC Glucose 176 151 193 Calculated Osmolal ity Calcium Vitals: Last Vital Signs Temp 97.9 F 05/08/20 07:45 Pulse 52 L 05/08/20 07:45 Resp 18 05/08/20 08:34 BP 110/60 05/08/20 07:45 Pulse Ox 94 05/08/20 07:45 Discharge Plan Discharge Patient Disposition: Xfer SNF Condition: Stable Prescriptions: New oxycodone-acetaminophen 5-325 mg tablet 1 tab PO Q4H PRN (Reason: pain) Qty: 40 RF: 0 apixaban 2.5 mg tablet 2.5 mg PO BID Qty: 28 RF: 0 Continued metformin 500 mg Tablet 250 mg PO BID RF: 0 primidone 50 mg Tablet 50 mg PO BID RF: 0 Aspir-81 81 mg Tablet,Delayed Release (Dr/Ec) 81 mg PO DAILY RF: 0 Lopid 600 mg Tablet 600 mg PO BID RF: 0 nitroglycerin 0.4 mg tablet, sublingual 0.4 mg sublingual PRN MDD chest pain RF: 0 Prilosec OTC 20 mg Tablet,Delayed Release (Dr/Ec) 20 mg PO DAILY RF: 0 metoprolol tartrate 25 mg Tablet 25 mg PO BID RF: 0 hydrochlorothiazide 12.5 mg Tablet 12.5 mg PO DAILY RF: 0 Discharge Orders: Discharge Order (Routine); Ordered 05/08/20 Ordered By: Rufus Sandoval Referrals: Jose Zhao [Family Provider] - 4-7 days (snf will make this appointment.) Rufus Sandoval DO [Physician] - 05/20/20 11:30 am (You have an appointment in May 20 at 11:30am) Ibis Anne NP [Primary Care Provider] - (snf will make all follow up appointments.) Discharge Diet: Diabetic Discharge Activity: Limit activity as instructed and Use walker/crutches as instructed Patient Instructions: Oxycodone/Acetaminophen (By mouth), Apixaban (By mouth) Activity Restrictions/Additional Instructions: Follow-up with primary care provider at [facility] facility in 3 to 5 days Discharge Attestations Time Spent in Discharge Care*: greater than 30 min Quality Metrics Clinical Quality Measures During this hospital stay, did patient experience: None Coding Level of Care Code Acute Tool Setter Apprentice for Jose Fwkalpana Diagnoses Intertrochanteric fracture of left hip S72.142A Status post-operative repair of closed fracture of left hip Z98.890; Z87.81 Fall W19.XXXA
[2020-05-08 11:04] LABS: Glucose Point of Care 176 mg/dL (70-110)
--- NOTE | 2020-05-08 12:13 | PC.RESP ---
Pulmonary Rehab information sent to patient.
--- NOTE | 2020-05-08 13:01 | PC.RESP ---
Pulmonary Rehab information sent to patient.
--- NOTE | 2020-05-08 14:23 | PC.NURSE ---
Report called to Iram Alvarez RN at [facility].
== END 2020-05-08 16:00 | disposition skilled nursing facility (03) | DRG 481 ==
LOC: ER 12:22 → OPS 12:27 → MEDSURG 13:47
PROVIDERS: Family Medicine; Orthopaedic Surgery; Admitting Provider Internal Medicine; Family Provider Family Medicine; PCP Nurse Practitioner Family; Visit Provider Internal Medicine
PROC: 0QH736Z Insertion of Intramedullary Internal Fixation Device into Left Upper Femur, Percutaneous Approach (ICD-10-PCS; CPT 27245; principal; 2020-05-06 14:10)
DX: S72.142A Displaced intertrochanteric fracture of left femur, initial encounter for closed fracture (principal); D62 Acute posthemorrhagic anemia; W11.XXXA Fall on and from ladder, initial encounter; G47.33 Obstructive sleep apnea (adult) (pediatric); J44.9 Chronic obstructive pulmonary disease, unspecified; E11.9 Type 2 diabetes mellitus without complications; G25.0 Essential tremor; E78.5 Hyperlipidemia, unspecified; I10 Essential (primary) hypertension; Z79.82 Long term (current) use of aspirin
CPT/HCPCS: 12345; 36415; 36416; 51702; 71045; 72040; 73502; 73552; 73562; 76000; 80048; 80053; 81001; 81003; 82962; 85025; 85610; 85730; 86850; 86900; 87086; 93005; 96372; 96375; 97110; 97161; 97166; 97530; 97535; 99283; C1713; J0330; J0690; J1580; J1815; J2001; J2270; J2405; J2704; J3010; J3490; J7030

== ENCOUNTER → 2020-05-20 11:29 | Outpatient (BNVA) | payer OTHER, SELFPAY | PROVIDERS: Family Provider Family Medicine; PCP Nurse Practitioner Family; Visit Provider Orthopaedic Surgery | DX: S72.142A Displaced intertrochanteric fracture of left femur, initial encounter for closed fracture (principal); X58.XXXA Exposure to other specified factors, initial encounter | CPT/HCPCS: 73502 ==

== ENCOUNTER → 2020-06-22 13:43 | Outpatient (BNVA) | payer OTHER, SELFPAY | PROVIDERS: Family Provider Family Medicine; PCP Nurse Practitioner Family; Referring Provider Orthopaedic Surgery; Visit Provider Orthopaedic Surgery | DX: Z47.89 Encounter for other orthopedic aftercare (principal); S72.142D Displaced intertrochanteric fracture of left femur, subsequent encounter for closed fracture with routine healing; W11.XXXD Fall on and from ladder, subsequent encounter; Z87.81 Personal history of (healed) traumatic fracture | CPT/HCPCS: 73502 ==

== ENCOUNTER → 2020-07-21 15:42 | Outpatient (BNVA) | payer OTHER, SELFPAY | PROVIDERS: Family Provider Family Medicine; PCP Nurse Practitioner Family; Visit Provider Orthopaedic Surgery | DX: Z47.89 Encounter for other orthopedic aftercare (principal); S72.142D Displaced intertrochanteric fracture of left femur, subsequent encounter for closed fracture with routine healing; W11.XXXD Fall on and from ladder, subsequent encounter; M25.562 Pain in left knee | CPT/HCPCS: 73502; 73562 ==

== ENCOUNTER 2020-08-05 14:50 | Outpatient (CLI) | payer OTHER, SELFPAY ==
--- NOTE | 2020-08-05 15:06 | CT_ITS ---
WS: [id number] CT LEFT HIP, NONCONTRAST. HISTORY: left hip intertrochanteric fracture Technique: All CT scans at [facility] use at least one of these dose optimization techniq ues: automated exposure control; mA and/or kV adjustment per patient size (includes targeted exams wh ere dose is matched to clinical indication); or iterative reconstruction. DLP: 866.9 mGycm COMPARISON: 07/21/2020 Patient is status post short intramedullary robbin and gamma nail placement. Comminuted intertrochanteri c fracture is identified. Avulsion fractures with mild displacement through the lesser and greater tr ochanters. Fracture line is still evident with minimal interval healing. No fracture of the distal en d of the femoral robbin. Gamma nail ends appropriately and does not extend into the joint space. Soft tissue tract with fibrosis from the surgery. No fluid collections or abscess. CT/CT hip LT wo con* [id number] IMPRESSION: 1. Status post rodding and gamma nail placement intertrochanteric hip fracture . 2. Avulsion fractures of the greater and lesser trochanters and through the in tertrochanteric portion of the hip. Fracture lines are still evident but there is some callus formation and healing.
== END 2020-08-05 14:51 | disposition home or self-care (01) ==
LOC: RADWPI 14:53
PROVIDERS: Family Provider Family Medicine; PCP Electrodiagnostic Medicine; Visit Provider Orthopaedic Surgery
DX: S72.142A Displaced intertrochanteric fracture of left femur, initial encounter for closed fracture (principal); Z98.890 Other specified postprocedural states; X58.XXXA Exposure to other specified factors, initial encounter
CPT/HCPCS: 73700

== ENCOUNTER → 2020-09-22 11:32 | Outpatient (BNVA) | payer OTHER, SELFPAY | PROVIDERS: Family Provider Family Medicine; PCP Electrodiagnostic Medicine; Visit Provider Orthopaedic Surgery | DX: Z47.89 Encounter for other orthopedic aftercare (principal); S72.142D Displaced intertrochanteric fracture of left femur, subsequent encounter for closed fracture with routine healing; X58.XXXD Exposure to other specified factors, subsequent encounter | CPT/HCPCS: 73502 ==

== ENCOUNTER → 2020-11-03 09:59 | Outpatient (BNVA) | payer OTHER, SELFPAY | PROVIDERS: Family Provider Family Medicine; PCP Electrodiagnostic Medicine; Visit Provider Orthopaedic Surgery | DX: Z47.89 Encounter for other orthopedic aftercare (principal); S72.142D Displaced intertrochanteric fracture of left femur, subsequent encounter for closed fracture with routine healing; X58.XXXD Exposure to other specified factors, subsequent encounter | CPT/HCPCS: 73502 ==

== ENCOUNTER 2020-11-13 10:59 | Outpatient (CLI) | payer OTHER, SELFPAY ==
--- NOTE | 2020-11-13 11:30 | CT_ITS ---
WS: [id number] CT LEFT HIP, NONCONTRAST. HISTORY: S72.142A - Displaced intertrochanteric fracture of left femur, initial encounter for closed fracture Technique: All CT scans at [facility] use at least one of these dose optimization techniq ues: automated exposure control; mA and/or kV adjustment per patient size (includes targeted exams wh ere dose is matched to clinical indication); or iterative reconstruction. DLP: 961.02 mGycm COMPARISON: 08/05/2020 and 11/03/2020 Gamma nail fixation and short intramedullary robbin fixation of an intertrochanteric fracture. The commi nuted fracture along the intertrochanteric site involving the greater and lesser trochanters is still evident. Fracture has not completely healed although there is increasing callous formation with no c hange in alignment. No change in position of the gamma nail. Intramedullary robbin is in the central med ullary cavity. No adjacent fluid collections or soft tissue edema. LEFT pubic rami are negative. CT/CT hip LT wo con* [id number] IMPRESSION: 1. Status post ORIF intertrochanteric hip fracture in good position alignment. Mild progression of healing since 08/05/2020. 2. No acute fracture. No evidence of hardware failure.
== END 2020-11-13 11:00 | disposition home or self-care (01) ==
LOC: RADWPI 11:04
PROVIDERS: PCP Electrodiagnostic Medicine; Visit Provider Orthopaedic Surgery
DX: S72.142A Displaced intertrochanteric fracture of left femur, initial encounter for closed fracture (principal); Z87.81 Personal history of (healed) traumatic fracture; Z98.890 Other specified postprocedural states; X58.XXXA Exposure to other specified factors, initial encounter
CPT/HCPCS: 73700

== ENCOUNTER 2020-12-01 06:18 | Inpatient (IN) | payer OTHER, MEDICARE, SELFPAY ==
[2020-12-01] VITALS (93 sets, daily range): BP systolic 66–141; BP diastolic 43–99; PULSE 65–124; RESP 0–47; TEMP 36.7–38; O2SAT 92–99; BMI 32.5
--- NOTE | 2020-12-01 06:42 | XRR_ITS ---
PROCEDURE INFORMATION: Exam: XR Chest, 1 View Exam date and time: 12/01/2020 6:52 AM Age: 70 years old Clinical indication: Cough TECHNIQUE: Imaging protocol: XR of the chest Views: 1 view. COMPARISON: CR XR chest 1V portable [id number] 05/06/2020 10:57 AM FINDINGS: Lungs: Hypoinflation without acute airspace disease. Pleural spaces: No pleural effusion. Heart/Mediastinum: No cardiomegaly. Vascular: Ectasia of the thoracic aorta. Bones/joints: Degenerative change. Other findings: Multiple superficial snaps. XR/XR chest 1V portable [id number] IMPRESSION: Hypoinflation without acute airspace or pleural disease.
[2020-12-01 07:04] LABS: ABG PCO2 29.1 mmHg (35-45); ABG PH Result 7.46 (7.35-7.45); Arterial Blood Gas Hematocrit 45.7 % (42-52); Base Excess ABG -1.9 mmol/L (-2.0-2.0); Blood Gas Allen Test Pos; Blood Gas Sample Site Radial, right; Blood Gas Sample Type Arterial; HCO3 ABG 20.6 mmol/L (22-26); Oxygen Device ROOM AIR; PO2 ABG 66.8 mmHg (80.0-100.0)
[2020-12-01 07:17] LABS: Basophils % 0.3 %; Eosinophils % 0.1 %; Hematocrit 44.9 % (42.0-52.0); Hemoglobin 14.9 g/dL (11.7-16.6); Lymphocytes # 0.2 10^3/uL (0.8-4.8); Lymphocytes % 2.6 %; Mean Corpuscular HGB Conc 33.2 g/dL (30.0-36.0); Mean Corpuscular Hemoglobin 30.9 pg (28.0-34.0); Mean Corpuscular Volume 93.2 fL (80-94); Mean Platelet Volume 9.5 fL (7.4-10.4); Monocytes % 0.3 %; Neutrophils # 6.54 10^3/uL (1.8-7.7); Neutrophils % 95.5 %; Nucleated Red Blood Cells % 0 %; Platelet Count 193 10^3/cmm (130-400); Red Blood Count 4.82 10^6/uL (4.1-5.3); Red Cell Distribution Width 13.1 % (12.1-15.1); White Blood Count 6.9 10^3/uL (4.0-10.0)
--- NOTE | 2020-12-01 07:25 | ED_ITS ---
HPI - COVID General: Chief Complaint: COVID symptoms Stated Complaint: SOB/N/V/Fever Time Seen by Provider: 12/01/20 06:24 Triage information: Has fever, cough or shortness of breath . No known COVID + exposure last 14 days History of Present Illness: HPI Narrative: 70-year-old male comes in complaining of fever cough short of breath nausea body aches began at 3 AM today. He has had some nausea and vomiting as well denies any hematemesis coffee-ground emesis. He is complaining of back pain as well. Denies any anosmia or diarrhea. Eliquis is listed on his medication list however it looks like it was started after he was discharged last summer for a femur fracture which required surgery. We are looking to confirm if he is still on it. MD complaint: has COVID symptoms Prior covid testing: no COVID 19 common symptoms: positive fever(s), chills, cough, non-productive cough, fatigue, nasal congestion, nausea and vomiting COVID 19 other sytmptoms: negative requiring oxygen Onset (ago): hour(s) Severity: mild Pertinent comorbid conditions: diabetes, hypertension and heart disease Treatment prior to arrival: none COVID Results: SARS-CoV-2 Antigen (Rapid) Negative (Negative) 12/01/20 07:00 12/01/20 Nasal/Oral Coronavirus 2019 PCR Pending 12/01/20 08:41 12/01/20 Review of Systems Const: Reports: fever(s), chills and fatigue ENMT: Reports: nasal congestion Resp: Reports: non-productive cough GI: Reports: nausea and vomiting PFS ED PFSH: Medical History (Updated 12/01/20 @ 11:51 by Jerel Ch DO) COPD (chronic obstructive pulmonary disease) Diabetes mellitus Essential tremor Hyperlipidemia Hypertension Intertrochanteric fracture of left hip Postoperative day #2, doing well. Obstructive sleep apnea Surgical History History of back surgery History of knee surgery Status post-operative repair of closed fracture of left hip Family History Other Diabetes Social History Smoking and tobacco status: never smoked Alcohol intake: current Alcohol intake frequency: 0-2 Drinks per Day Physical Exam Const: COMMON NORMALS: no acute distress GENERAL APPEARANCE: cooperative and comfortable ORIENTATION/CONSCIOUSNESS: Yes awake, Yes oriented to person, Yes oriented to place and Yes oriented to time HENMT: COMMON NORMALS: normocephalic, atraumatic and hearing grossly normal bilaterally HEAD & SCALP: normocephalic and atraumatic Neck/C-Spine: COMMON NORMALS: no JVD Resp: COMMON NORMALS: normal respiratory effort, No retractions, No use of accessory muscles and clear to auscultation bilaterally AUSCULTATION: clear to auscultation bilaterally Cardio: COMMON NORMALS: no JVD, regular rate, regular rhythm and No murmurs present (Cardio) RATE: regular rate RHYTHM: regular rhythm GI: COMMON NORMALS: Soft to palpation and No hepatosplenomegaly present AUSCULTATION: Yes normoactive bowel sounds PALPATION: Yes Soft to palpation, Yes Tenderness to palpation present (GI) Details: LLQ, No Guarding due to palpation present (GI) and Yes No hepatosplenomegaly present Extremity: COMMON NORMALS: normal to inspection, capillary refill normal, no clubbing, cyanosis or edema, no calf tenderness and no pedal edema Neuro: SENSORIUM/ORIENTATION: Yes oriented to person, Yes oriented to place and Yes oriented to time Skin: COMMON NORMALS: no rashes or lesions noted GENERAL SKIN EXAM: no rashes or lesions noted Course Vital Signs: Vital signs: Vital Signs Temperature 100.4 F H 12/01/20 06:32 Pulse Rate 93 12/01/20 12:00 Respiratory Rate 28 H 12/01/20 12:00 Blood Pressure 93/56 12/01/20 12:00 Pulse Oximetry 96 12/01/20 12:00 MDM - COVID MDM Narrative: Medical decision making narrative: D-dimer significantly elevated however the CTA and the venous duplex lower extremities are negative. CTA did mention some tree-in-bud airspace disease but there is no definitive pneumonia patient does appear to be septic is hypotensive lactic acid is elevated although his white count is normal. Start him on Cipro and Flagyl to cover for diverticulitis discussed with radiology and with hospitalist will need to monitor for developing pneumonia although right now is difficulty actually has pneumonia process. He does have a rapid Covid negative test and a PCR was sent out to confirm. Patient given fluid bolus started on Levophed to support pressure he will be admitted to the ICU discussed with hospitalist Lab Data: Labs: Lab Results 12/01/20 12/01/20 12/01/20 Range/Units 06:55 07:00 07:00 WBC 6.9 (4.0-10.0) 10^3/ uL RBC 4.82 (4.1-5.3) 10^6/u L Hgb 14.9 (11.7-16.6) g/dL Hct 44.9 (42.0-52.0) % MCV 93.2 (80-94) fL MCH 30.9 (28.0-34.0) pg MCHC 33.2 (30.0-36.0) g/dL RDW 13.1 (12.1-15.1) % Plt Count 193 (130-400) 10^3/c mm MPV 9.5 (7.4-10.4) fL Neut % (Auto) 95.5 % Lymph % (Auto) 2.6 % Evangeline % (Auto) 0.3 % Eos % (Auto) 0.1 % Baso % (Auto) 0.3 % Neut # (Auto) 6.54 (1.8-7.7) 10^3/u L Lymph # (Auto) 0.2 L (0.8-4.8) 10^3/u L Evangeline # (Auto) 0.0 L (0.2-0.9) 10^3/u L Eos # (Auto) 0.0 (0.0-0.8) 10^3/u L Baso # (Auto) 0.0 (0.0-0.1) 10^3/u L Nucleated RBC % (a uto) 0 % Nucleated RBCs # 0.0 /100WBC D-Dimer 14.64 H (0-0.59) ug/mIFE U Specimen Type Arterial Sample Site Radial, right ABG pH 7.46 H (7.35-7.45) ABG pCO2 29.1 L (35-45) mmHg ABG pO2 66.8 L (80.0-100.0) mmH g ABG HCO3 20.6 L (22-26) mmol/L ABG Base Excess -1.9 (-2.0-2.0) mmol/ L Florian Test Pos Hematocrit 45.7 (42-52) % O2 Delivery Device Room air FiO2 21.0 % Lottery Clerk ID Jlg Sodium (136-145) mmol/L Potassium (3.5-5.1) mmol/L Chloride (98-107) mmol/L Carbon Dioxide (22-29) mmol/L Anion Gap (5-19) BUN (8-23) mg/dL Creatinine (0.7-1.2) mg/dL GFR Calculation Glucose (65-115) mg/dL Calculated Osmolal ity (285-295) mOsm/k g Lactic Acid (0.5-2.2) mmol/L Calcium (8.5-10.5) mg/dL Total Bilirubin (0.15-1.2) mg/dL AST (0-40) U/L ALT (0-41) U/L Alkaline Phosphata se (40-130) IU/L Total Protein (6.6-8.7) g/dL Albumin (3.5-5.2) g/dL Globulin (1.3-4.6) g/dL Urine Color (Yellow) Urine Appearance (CLEAR) Urine pH (5-7) Ur Specific Gravit y (1.005-1.030) Urine Protein (Negative) Urine Glucose (UA) (Normal) Urine Ketones (Negative) Urine Blood (Negative) Urine Nitrate (Negative) Urine Bilirubin (Negative) Urine Urobilinogen (Negative) mg/dL Ur Leukocyte Mag ase (Negative) Urine RBC (0-2) /hpf Urine WBC (0-5) /hpf Ur Squamous Epith Cells (0-5) /hpf Amorphous Sediment /hpf Urine Bacteria (NONE) /hpf Hyaline Casts /lpf Influenza Type A A g (Negative) Influenza Type B A g (Negative) SARS-CoV-2 Ag (Rap id) (Negative) 12/01/20 12/01/20 12/01/20 Range/Units 07:00 07:00 07:00 WBC (4.0-10.0) 10^3/ uL RBC (4.1-5.3) 10^6/u L Hgb (11.7-16.6) g/dL Hct (42.0-52.0) % MCV (80-94) fL MCH (28.0-34.0) pg MCHC (30.0-36.0) g/dL RDW (12.1-15.1) % Plt Count (130-400) 10^3/c mm MPV (7.4-10.4) fL Neut % (Auto) % Lymph % (Auto) % Evangeline % (Auto) % Eos % (Auto) % Baso % (Auto) % Neut # (Auto) (1.8-7.7) 10^3/u L Lymph # (Auto) (0.8-4.8) 10^3/u L Evangeline # (Auto) (0.2-0.9) 10^3/u L Eos # (Auto) (0.0-0.8) 10^3/u L Baso # (Auto) (0.0-0.1) 10^3/u L Nucleated RBC % (a uto) % Nucleated RBCs # /100WBC D-Dimer (0-0.59) ug/mIFE U Specimen Type Sample Site ABG pH (7.35-7.45) ABG pCO2 (35-45) mmHg ABG pO2 (80.0-100.0) mmH g ABG HCO3 (22-26) mmol/L ABG Base Excess (-2.0-2.0) mmol/ L Florian Test Hematocrit (42-52) % O2 Delivery Device FiO2 % Lottery Clerk ID Sodium 137 (136-145) mmol/L Potassium 3.7 (3.5-5.1) mmol/L Chloride 102 (98-107) mmol/L Carbon Dioxide 22 (22-29) mmol/L Anion Gap 16.7 (5-19) BUN 15 (8-23) mg/dL Creatinine 1.0 (0.7-1.2) mg/dL GFR Calculation Not Reportable Glucose 179 H (65-115) mg/dL Calculated Osmolal ity 289 (285-295) mOsm/k g Lactic Acid 4.4 H* (0.5-2.2) mmol/L Calcium 9.0 (8.5-10.5) mg/dL Total Bilirubin 0.8 (0.15-1.2) mg/dL AST 14 (0-40) U/L ALT 11 (0-41) U/L Alkaline Phosphata se 82 (40-130) IU/L Total Protein 6.6 (6.6-8.7) g/dL Albumin 3.9 (3.5-5.2) g/dL Globulin 2.7 (1.3-4.6) g/dL Urine Color (Yellow) Urine Appearance (CLEAR) Urine pH (5-7) Ur Specific Gravit y (1.005-1.030) Urine Protein (Negative) Urine Glucose (UA) (Normal) Urine Ketones (Negative) Urine Blood (Negative) Urine Nitrate (Negative) Urine Bilirubin (Negative) Urine Urobilinogen (Negative) mg/dL Ur Leukocyte Mag ase (Negative) Urine RBC (0-2) /hpf Urine WBC (0-5) /hpf Ur Squamous Epith Cells (0-5) /hpf Amorphous Sediment /hpf Urine Bacteria (NONE) /hpf Hyaline Casts /lpf Influenza Type A A g (Negative) Influenza Type B A g (Negative) SARS-CoV-2 Ag (Rap id) Negative (Negative) 12/01/20 12/01/20 Range/Units 09:45 11:55 WBC (4.0-10.0) 10^3/ uL RBC (4.1-5.3) 10^6/u L Hgb (11.7-16.6) g/dL Hct (42.0-52.0) % MCV (80-94) fL MCH (28.0-34.0) pg MCHC (30.0-36.0) g/dL RDW (12.1-15.1) % Plt Count (130-400) 10^3/c mm MPV (7.4-10.4) fL Neut % (Auto) % Lymph % (Auto) % Evangeline % (Auto) % Eos % (Auto) % Baso % (Auto) % Neut # (Auto) (1.8-7.7) 10^3/u L Lymph # (Auto) (0.8-4.8) 10^3/u L Evangeline # (Auto) (0.2-0.9) 10^3/u L Eos # (Auto) (0.0-0.8) 10^3/u L Baso # (Auto) (0.0-0.1) 10^3/u L Nucleated RBC % (a uto) % Nucleated RBCs # /100WBC D-Dimer (0-0.59) ug/mIFE U Specimen Type Sample Site ABG pH (7.35-7.45) ABG pCO2 (35-45) mmHg ABG pO2 (80.0-100.0) mmH g ABG HCO3 (22-26) mmol/L ABG Base Excess (-2.0-2.0) mmol/ L Florian Test Hematocrit (42-52) % O2 Delivery Device FiO2 % Lottery Clerk ID Sodium (136-145) mmol/L Potassium (3.5-5.1) mmol/L Chloride (98-107) mmol/L Carbon Dioxide (22-29) mmol/L Anion Gap (5-19) BUN (8-23) mg/dL Creatinine (0.7-1.2) mg/dL GFR Calculation Glucose (65-115) mg/dL Calculated Osmolal ity (285-295) mOsm/k g Lactic Acid (0.5-2.2) mmol/L Calcium (8.5-10.5) mg/dL Total Bilirubin (0.15-1.2) mg/dL AST (0-40) U/L ALT (0-41) U/L Alkaline Phosphata se (40-130) IU/L Total Protein (6.6-8.7) g/dL Albumin (3.5-5.2) g/dL Globulin (1.3-4.6) g/dL Urine Color Yellow (Yellow) Urine Appearance Clear (CLEAR) Urine pH 5 (5-7) Ur Specific Gravit y 1.010 (1.005-1.030) Urine Protein 1+ H (Negative) Urine Glucose (UA) Norm (Normal) Urine Ketones Negative (Negative) Urine Blood Trace H (Negative) Urine Nitrate Negative (Negative) Urine Bilirubin 1+ H (Negative) Urine Urobilinogen 1 H (Negative) mg/dL Ur Leukocyte Mag ase Negative (Negative) Urine RBC 0-4 H (0-2) /hpf Urine WBC 0-4 H (0-5) /hpf Ur Squamous Epith Cells 0-4 H (0-5) /hpf Amorphous Sediment Trace /hpf Urine Bacteria 1+ H (NONE) /hpf Hyaline Casts 5-10 H /lpf Influenza Type A A g Negative (Negative) Influenza Type B A g Negative (Negative) SARS-CoV-2 Ag (Rap id) (Negative) COVID Results: SARS-CoV-2 Antigen (Rapid) Negative (Negative) 12/01/20 07:00 12/01/20 Nasal/Oral Coronavirus 2019 PCR Pending 12/01/20 08:41 12/01/20 Discharge Plan Discharge Patient Disposition: Admitted As Inpatient Clinical Impression: Diverticulitis of sigmoid colon, Sepsis, Suspected severe acute respiratory syndrome coronavirus 2 (SARS-CoV-2) infection, Suspected 2019-nCoV infection Condition: Stable Coding Level of Care Code ED Chief Optometry Service for Chg Fwd Exam Comprehensive
[2020-12-01 07:36] LABS: Alanine Aminotransferase 11 U/L (0-41); Albumin Level 3.9 g/dL (3.5-5.2); Alkaline Phosphatase 82 IU/L (40-130); Anion Gap 16.7 (5-19); Aspartate Amino Transferase 14 U/L (0-40); Blood Urea Nitrogen 15 mg/dL (8-23); Carbon Dioxide 22 mmol/L (22-29); Chloride 102 mmol/L (98-107); Globulin 2.7 g/dL (1.3-4.6); Glucose 179 mg/dL (65-115); Osmolality Calculated 289 mOsm/kg (285-295); Potassium 3.7 mmol/L (3.5-5.1); Sodium 137 mmol/L (136-145); Total Bilirubin 0.8 mg/dL (0.15-1.2); Total Protein 6.6 g/dL (6.6-8.7)
[2020-12-01 07:37] LABS: SARS Covid-2 Antigen Negative (Negative)
[2020-12-01 07:38] LABS: D Dimer 14.64 ug/mIFEU (0-0.59)
[2020-12-01 07:47] LABS: Slide Review Slide Review Perform
--- NOTE | 2020-12-01 07:52 | CT_ITS ---
WS: [id number] CT CHEST ANGIOGRAPHY WITH REFORMATS HISTORY: dyspnea TECHNIQUE: Contiguous axial images are obtained through the chest during arterial injection of intrav enous contrast. Images are reconstructed to evaluate the pulmonary arteries. MIP imaging also reviewe d. All CT scans at [facility] use at least one of these dose optimization techniques: aut omated exposure control; mA and/or kV adjustment per patient size (includes targeted exams where dose is matched to clinical indication); or iterative reconstruction. CONTRAST: Visipaque 320; 95 mL IV. DLP: 585.27 mGy.cm COMPARISON: 04/10/2017 Limited opacification of the pulmonary arteries. No central and proximal peripheral emboli identified . Pulmonary artery size is normal. Normal-sized thoracic aorta. Normal size heart. No pericardial or pleural effusions. No mediastinal or hilar adenopathy. Mild tree-in-bud opacifications noted bilatera lly but greatest on the RIGHT involving the upper and middle lobes. To a lesser extent at the lung ba ses. No consolidations or pneumonia. Benign granuloma at the LEFT lung base. No mass. Cholelithiasis without acute cholecystitis. No bile duct dilatation. No LEFT adrenal mass measures 3. 0 x 2.2 cm with mild increase in size since 04/10/2017. No destructive bone lesions. Mild thoracic spondylosis. CT/CT angio chest PE protcl [id number] IMPRESSION: 1. No pulmonary embolism. 2. Tree-in-bud airspace disease bilaterally typically seen with end airways in fectious disease.
[2020-12-01] MEDS: iodixanol 320 mg/mL 100mL Btl IV ×2 (08:18→10:17)
--- NOTE | 2020-12-01 08:53 | PC.PHAR ---
pt states he takes care of his own medications-pt states medications entered are the medications he takes-pt states he get [facility] list
--- NOTE | 2020-12-01 09:14 | ECG_ITS ---
[facility] Test Date: 2020-12-01 Pat Name: Cory Alvarez Department: Room: Gender: Male [employer] Operator: : 1950 Requested By: Jerel Quintanilla Order Number: [id number] Jadyn MD: ATIF BOWERS Measurements Intervals [place] Rate: 123 P: -26 MA: 92 QRS: -17 QRSD: 88 T: 85 QT: 296 QTc: 424 Interpretive Statements SINUS TACHYCARDIA WITH SHORT MA INTERVAL ABNORMAL RHYTHM ECG Compared to ECG 05/06/2020 13:14:56 Short MA interval now present Sinus rhythm no longer present Ventricular premature complex(es) no longer present T-wave abnormality no longer present Electronically Signed On 12-01-2020 18:02:35 DIRECTOR OF INFORMATICS by ATIF BOWERS [email or web address]
--- NOTE | 2020-12-01 09:39 | USCV_ITS ---
Cory Alvarez Age: 70 Gender: M : 1950 Exam Date: 12/01/2020 09:59 Ordering Phys: Jerel Ch DO Technologist: Vasiliy Gutierrez Exam Location: [facility]_ Indication: BLE SWELLING HISTORY: Lower extremity swelling. PROCEDURES: Venous duplex imaging was performed in bilateral lower extremities. The following venous structures were evaluated: common femoral vein, profunda vein, proximal portion of the greater saphenous vein, superficial femoral vein, and the popliteal vein. In addition, the posterior tibial veins were evaluated. Serial compression, augmentation maneuvers, and spectral Doppler flow evaluation were performed. FINDINGS: Normal 2-D Doppler and augmentation and compressibility throughout the lower extremity venous structures. Additional imaging through the proximal calf veins also reveals no thrombus. Limited evaluation of the greater saphenous vein is patent with no thrombus. CONCLUSIONS No DVT bilateral lower extremities. Dr. Marsha Durand DO (Electronically Signed) Final Date: 01 December 2020 10:50 S
--- NOTE | 2020-12-01 09:40 | CT_ITS ---
WS: [id number] CT ABDOMEN AND PELVIS WITH CONTRAST HISTORY: Abdominal pain and short of breath. TECHNIQUE: Imaging performed of the abdomen and pelvis with IV contrast. Single phase imaging of the abdomen. Coronal and sagittal reformats are submitted. All CT scans at [facility] use at least one of these dose optimization techniques: automated exposure control; mA and/or kV adjustment per patient size (includes targeted exams where dose is matched to clinical indication); or iterativ e reconstruction. IV CONTRAST: Visipaque 320; 95 mL IV. Oral contrast: No DLP: 1568.46 mGy.cm COMPARISON: None available. Lower thorax: Mild to and airways branching and tree-in-bud opacifications. Benign granuloma LEFT malka g base. Heart is normal size. Small hiatal hernia. Liver/biliary system: Mild hepatic steatosis. Gallbladder: Well distended gallbladder with numerous stones. No adjacent inflammation or bile duct d ilatation. Pancreas: Mild atrophy. No pancreatitis. Spleen: Normal. Adrenal glands: Normal RIGHT adrenal gland. Nodularity in the LEFT adrenal gland. Nodule measures 2.2 x 1.8 cm and is similar to the prior study from 04/10/2017. Right kidney: Numerous cysts associated with the RIGHT kidney. The largest measures 6.2 cm. No solid mass or obstruction. Left kidney: No solid mass or obstruction. Aorta: Mild atherosclerosis with no aneurysm. Lymphadenopathy: None. Free fluid: None. GI tract: Mild diffuse fecal retention and constipation. Distal colon and sigmoid diverticulosis. Num erous diverticula are present. There is a focal area of acute inflammation involving the mid sigmoid wall thickening and pericolonic stranding and inflammation. No free air or abscess. Area of inflammat ion is towards the RIGHT of midline. Appendix is normal. Abdominal wall: Unremarkable abdominal wall. No hernia. Pelvis: Urinary bladder is distended with excreted contrast from prior CT. There is no free fluid. No adenopathy in the pelvis. Bones: Degenerative disc disease at L4-5 and L5-S1 with facet joint arthritis. Prior ORIF LEFT hip. CT/CT abdomen pelvis w con* [id number] IMPRESSION: 1. Acute sigmoid diverticulitis without free air or abscess. 2. Cholelithiasis without acute cholecystitis. 3. No appendicitis.
[2020-12-01] MEDS: sodium chloride 0.9% 1,000 ML 999 ML IV ×2 (09:43→10:15)
[2020-12-01 10:39] LABS: Influenza A by IFA Negative (Negative); Influenza B by IFA Negative (Negative)
[2020-12-01] MEDS: ciprofloxacin 400 MG/200 ML PREMIX 200 MG IV (10:56)
[2020-12-01] MEDS: metroNIDAZOLE IV 500 MG/100 ML PREMIX 100 MG IV (10:57)
[2020-12-01 11:19] LABS: Lactic Sepsis W/Reflex 4.4 mmol/L (0.5-2.2)
[2020-12-01 12:13] LABS: Protein Urine 1+ (Negative); Urine Appearance Clear (CLEAR); Urine Color Yellow (Yellow); pH Urine 5 (5-7)
[2020-12-01 12:14] LABS: Add Urine Microscopic? YES; Bilirubin Urine 1+ (Negative); Blood Urine Trace (Negative); Glucose Urine UA Norm (Normal); Ketones Urine Negative (Negative); Leukocyte Esterase Urine Negative (Negative); Nitrate Urine Negative (Negative); Urobilinogen Urine 1 mg/dL (Negative)
[2020-12-01 12:19] LABS: Amorphous Sediment Urine TRACE /hpf; Bacteria Urine 1+ /hpf
[2020-12-01 12:20] LABS: Add Urine Culture? No; RBC Urine 0-4 /hpf (0-2); Squamous Epithelial Cell Urine 0-4 /hpf (0-5); WBC Urine 0-4 /hpf (0-5)
[2020-12-01 12:45] LABS: Reflex Lactate Order REFLEX LACTIC ORDERD
--- NOTE | 2020-12-01 13:08 | P.HP_ITS ---
Providers/Chief Complaint Primary Care Provider: Adolph Bond DO Chief Complaint: SOB/N/V/Fever History of Present Illness Cory Alvarez is a 70 year old male who presents to the emergency department with history of waking up around 3:30 AM with chills, aching and fever. He reports he has a little bit of abdominal discomfort in his lower abdomen. He threw up 2-3 times. He reports no blood in his emesis, coffee-ground emesis, blood in his stool or black or tarry stool. He reports he feels a little bit better in the ER. No chest discomfort. He has been a little short of breath. He states he was a little dizzy when he was up and around. Review of Systems General: Reports: 10 or more systems reviewed and unremarkable except in HPI and below Const: Reports: fever(s), chills and body aches Eyes: Denies: change in vision ENMT: Denies: throat pain Card: Denies: chest pain Resp: Reports: dyspnea GI: Reports: abdominal pain, nausea and vomiting; Denies: hematemesis, coffee ground emesis, hematochezia or melena : Denies: flank pain Musc: Denies: neck pain Skin/Breast: Denies: rash Neuro: Denies: headache(s) Psych: Denies: anxiety Endo: Denies: polyuria Ridge/Lymph: Denies: easy bruising All/Imm: Denies: urticaria Medications/Allergies Home Medications Medication Instructions Recorded Confirmed Last Taken Type gemfibrozil [Lopid] 600 mg PO BID@05/06/20 12/01/20 12/01/20 History hydrochlorothiazide 12.5 mg PO DAILY@05/06/20 12/01/20 12/01/20 History metformin 250 mg PO BID@05/06/20 12/01/20 12/01/20 History metoprolol tartrate 25 mg PO BID@05/06/20 12/01/20 12/01/20 History nitroglycerin 0.4 mg SUBLINGUAL PRN MDD chest 05/06/20 12/01/20 Unknown History pain omeprazole magnesium [Prilosec OTC] 20 mg PO DAILY@05/06/20 12/01/20 11/30/20 History primidone 50 mg PO BID@05/06/20 12/01/20 12/01/20 History Lift chair recliner #1 ea 11/27/20 12/01/20 Unknown Rx albuterol sulfate [ProAir HFA] 2 puff INHALATION QID PRN 12/01/20 12/01/20 Unknown History aspirin [Aspir-81] 81 mg PO DAILY@06 12/01/20 12/01/20 12/01/20 History Allergies Allergy/AdvReac Type Severity Reaction Status Date / Time No Known Allergies Allergy Verified 12/01/20 08:52 PFSH Acute PFSH: Medical History (Updated 12/01/20 @ 13:16 by Aaron Villatoro MD) COPD (chronic obstructive pulmonary disease) Diabetes mellitus Essential tremor Hyperlipidemia Hypertension Intertrochanteric fracture of left hip Postoperative day #2, doing well. Obstructive sleep apnea Surgical History History of back surgery History of knee surgery Status post-operative repair of closed fracture of left hip Family History Other Diabetes Social History Smoking and tobacco status: never smoked Alcohol intake: current Alcohol intake frequency: 0-2 Drinks per Day Vitals/I&O/Wt Last Vital Signs Temp 98.4 F 12/01/20 13:00 Pulse 90 12/01/20 13:00 Resp 28 H 12/01/20 13:00 BP 94/61 12/01/20 13:00 Pulse Ox 96 12/01/20 13:00 11/30/20 12/01/20 12/01/20 22:59 06:59 14:59 Intake Total 2012. Balance 2012. Weight last 48 hrs Weight 108.862 kg Physical Exam Narrative: EXAM NARRATIVE: General exam is a white male, conversant and alert and oriented. HEENT: Atraumatic and normocephalic. Pupils equally round. Oropharynx clear an d currently mucous membranes are moist. Neck is supple no lymphadenopathy or thyromegaly Cardiovascular regular rate and rhythm without murmur. Borderline tachycardic Lungs clear no wheezing or crackles Abdomen is soft, positive bowel sounds. Tenderness is present left lower quadrant. No rebound. was deferred Extremities no cyanosis clubbing or edema, cap refill brisk less than 2 seconds Skin no rash Neuro no obvious focal deficits Sepsis: Is patient septic: Yes Focused sepsis exam performed: Yes Data : 12/01/20 07:00 12/01/20 07:00 Micro: Microbiology 12/01/20 09:50 Blood Culture - Preliminary Blood SPECIMEN COLLECTED 12/01/20 09:50 Blood Culture - Preliminary Blood SPECIMEN COLLECTED Other data: EKG demonstrates sinus tachycardia rate in the 120s, left axis deviation, no acute ST or T wave changes Urinalysis essentially negative Chest x-ray by my read no obvious infiltrate Venous duplex no DVT Abdominal pelvis CT demonstrates acute sigmoid diverticulitis without free air or abscess and cholelithiasis without cholecystitis. Dimer is 14.64 ABG demonstrates a pH of 7.46, PCO2 29, PO2 67 on room air Lactic acid elevated at 4.4 LFTs normal Calcium 9.0 Influenza a and B-. Rapid Covid negative. PCR pending. A&P Assessment and plan (1) Sepsis: Evidence of sepsis with elevated heart rate, fever, elevated lactic acid level, focus of infection diverticulitis. Significant hypotension on arrival requiring pressors. Fluid boluses started in the emergency department IV antibiotics of Cipro and Flagyl started. Secondary to etiology of sepsis being diverticulitis and concern of pneumonia we will discontinue this and initiate Zosyn Blood cultures drawn Sputum culture MRSA PCR Status: Acute (2) Diverticulitis of sigmoid colon: Initiate Zosyn Follow for clinical X response N.p.o. except ice chips currently Status: Acute (3) Pneumonia: IV Zosyn Blood and sputum culture Combivent as needed Status: Acute Additional A&P Information Diabetes mellitus type 2. Sliding scale insulin. Hold Metformin. Patient has lactic acidosis and sepsis. Hypertension. Currently hypotensive. Hold medication Hyperlipidemia. Continue home medication Full code Lovenox for DVT prophylaxis Attestations Medical Necessity Statement*: Will need greater than 2 midnight stay for evaluation and treatment of sepsis and diverticulitis. Time Spent in Patient Care: Greater than 35 minutes Coding Level of Care Code Acute Telephone Order Clerk Room Service for [facility] Fw Diagnoses Sepsis A41.9 Diverticulitis of sigmoid colon K57.32 Pneumonia J18.9
[2020-12-01 13:45] LABS: Lactic Acid level (Lactate) 3.7 mmol/L (0.5-2.2)
[2020-12-01 14:37] LABS: Troponin T (5th) Once 11 ng/L (0-15)
[2020-12-01] MEDS: famotidine 20 mg/2 mL INJ IVP (18:24)
[2020-12-01] MEDS: primidone 50 mg Tablet PO (18:25)
[2020-12-01] MEDS: piperacillin-tazobactam 3.375 GM in sodium chloride 0.9% (plus) 50 ML IV (18:25)
[2020-12-01] MEDS: enoxaparin 40 mg/0.4 mL Syringe SUBCUT (18:25)
[2020-12-01] MEDS: sodium chloride 0.9% 1,000 ML 100 ML IV (18:26)
[2020-12-01 18:33] LABS: Glucose Point of Care 153 mg/dL (70-110)
--- NOTE | 2020-12-01 19:17 | PC.NURSE ---
Admission Patient was brought to unit at 1630 via bed. Norepinephrine was running at 6.Upon arrival Map was below 65 so norepinephrine was increased to 7. Patient had glasses, top dentures, clothes, forearm crutch and shoes with him that were placed at bedside. Map was below 65 so norepinephrine was increased to 7. SOB was noted and respirations were at 34. alert and orientated x 4.
[2020-12-01 20:43] LABS: Glucose Point of Care 143 mg/dL (70-110)
[2020-12-01] MEDS: gemfibrozil 600 mg Tablet PO (21:01)
[2020-12-02] VITALS (201 sets, daily range): BP systolic 89–143; BP diastolic 50–84; PULSE 52–152; RESP 0–37; TEMP 36.6–37.1; O2SAT 90–99; BMI 32.5
[2020-12-02] MEDS: piperacillin-tazobactam 3.375 GM in sodium chloride 0.9% (plus) 50 ML IV ×3 (02:16→18:06)
[2020-12-02 05:08] LABS: Basophils # 0.1 10^3/uL (0.0-0.1); Basophils % 0.3 %; Eosinophils # 2.4 10^3/uL (0.0-0.8); Eosinophils % 8.5 %; Hematocrit 37.5 % (42.0-52.0); Hemoglobin 12.3 g/dL (11.7-16.6); Lymphocytes % 3.5 %; Mean Corpuscular HGB Conc 32.8 g/dL (30.0-36.0); Mean Corpuscular Hemoglobin 31.1 pg (28.0-34.0); Mean Corpuscular Volume 94.9 fL (80-94); Mean Platelet Volume 10.5 fL (7.4-10.4); Monocytes # 1.6 10^3/uL (0.2-0.9); Monocytes % 5.5 %; Neutrophils # 22.76 10^3/uL (1.8-7.7); Neutrophils % 80.7 %; Nucleated Red Blood Cells % 0 %; Platelet Count 153 10^3/cmm (130-400); Red Blood Count 3.95 10^6/uL (4.1-5.3); Red Cell Distribution Width 13.5 % (12.1-15.1); White Blood Count 28.2 10^3/uL (4.0-10.0)
[2020-12-02] MEDS: primidone 50 mg Tablet PO ×2 (05:47→18:07)
[2020-12-02] MEDS: aspirin 81 mg EC Tablet PO (05:47)
[2020-12-02] MEDS: gemfibrozil 600 mg Tablet PO ×2 (05:47→18:07)
[2020-12-02] MEDS: famotidine 20 mg/2 mL INJ IVP ×2 (05:47→18:06)
[2020-12-02 06:30] LABS: Slide Review Slide Review Perform
[2020-12-02 07:15] LABS: Alanine Aminotransferase 41 U/L (0-41); Albumin Level 3.2 g/dL (3.5-5.2); Alkaline Phosphatase 51 IU/L (40-130); Anion Gap 13.1 (5-19); Aspartate Amino Transferase 49 U/L (0-40); Blood Urea Nitrogen 18 mg/dL (8-23); Calcium 8.4 mg/dL (8.5-10.5); Carbon Dioxide 22 mmol/L (22-29); Chloride 106 mmol/L (98-107); Globulin 2.6 g/dL (1.3-4.6); Glucose 127 mg/dL (65-115); Osmolality Calculated 289 mOsm/kg (285-295); Potassium 3.1 mmol/L (3.5-5.1); Sodium 138 mmol/L (136-145); Total Protein 5.8 g/dL (6.6-8.7)
[2020-12-02 07:50] LABS: Glucose Point of Care 119 mg/dL (70-110)
[2020-12-02] MEDS: sodium chloride 0.9% 1,000 ML 100 ML IV (08:09)
--- NOTE | 2020-12-02 09:23 | PC.CHAP ---
Pastoral Care Encounter/Spiritual Assessment Type of Contact [] Declined diabetes specialist visit [] Patient/Family/Request visit [] Outpatient visit [] Follow-up visit [] Physician referral [] Code/Alert [x] Routine visit [] Staff referral [] Actively dying [] Patient sleeping [] Family support [] [] Out of room [] Palliative care [] [] Receiving care in room [] Pre-surgical visit [] Trauma [] Long length of stay [x] ICU visit [] Other: Relational/Emotional Strength [] Patient feels connected with others/family/visitors/staff [] Distress [] Loneliness/isolation [] Abandonment Spirituality of Patient [] Person of Inge [] Attends Lutheran of their Inge [] Believes in Prayer [] Reads Bible or Sikhism materials [] There are Spiritual issues to be addressed Industrial [employer]der Interventions [x] Prayer [] Active listening [] Non-anxious presence [] Spiritual/emotional support [] Crisis/trauma care [] Spiritual counseling [] Bereavement support [] Provided bereavement packet [] Provided Bible/devotional materials [] Provided toy/stuffed animal, coloring book to patient or family member [] Provided Communion [] Anointing/[place] [] Salvation [x] Completed spiritual assessment [] Other: Impact on Illness or Injury [] Angry [] Fearful [] Anxious [] Often cries [] Exhaustion [] Unable to work [] Unable to attend tenriism [] Unable to walk/stand [] Unable to read [] Unable to drive [] Unable to eat/drink [] Unable to sleep [] Unable to be with family [] Patient intubated [] Other: Summary Time spent with patient
[2020-12-02] MEDS: sodium chlor 0.9% + KCl 20 mEq 20 MEQ/1,000 ML BAG 75 MEQ IV ×2 (10:02→23:06)
[2020-12-02] MEDS: potassium chloride ER 20 mEq Tablet 40 MEQ PO ×2 (10:03→16:17)
--- NOTE | 2020-12-02 10:49 | PM.PN ---
Subjective Subjective: Interval history: Cory is feeling better. He denies any further fevers. He reports he has no abdominal pain. No shortness of breath this morning. Denies any coughing. Medications: Reviewed: Yes Vitals/I&O/Wt Last Vital Signs Temp 97.9 F 12/02/20 08:30 Pulse 63 12/02/20 08:45 Resp 26 H 12/02/20 08:45 BP 105/68 12/02/20 08:45 Pulse Ox 94 12/02/20 08:45 12/01/20 12/02/20 12/02/20 22:59 06:59 14:59 Intake Total 250.20 / 5829.107 616.323 / 6445.430 1208.333 / 1208.333 Output Total 400 / 400 1075 / 1475 400 / 400 Balance -149.80 / 5429.107 -458.677 / 4970.430 808.333 / 808.333 Weight last 48 hrs Weight 108.862 kg Weight 108.862 kg Physical Exam Narrative: EXAM NARRATIVE: General exam is a white male, conversant and alert and oriented.. He is on a minimal amount of pressors. Neck is supple no lymphadenopathy or thyromegaly Cardiovascular regular rate and rhythm without murmur. Borderline tachycardic Lungs clear no wheezing or crackles Abdomen is soft, positive bowel sounds. No significant tenderness today Extremities no cyanosis clubbing or edema, cap refill brisk less than 2 seconds Data : 12/02/20 03:57 12/02/20 04:17 Micro: Microbiology 12/01/20 09:50 Blood Culture - Preliminary Blood NEGATIVE TO DATE 12/01/20 09:50 Blood Culture - Preliminary Blood NEGATIVE TO DATE A&P Assessment and plan (1) Sepsis: Evidence of sepsis with elevated heart rate, fever, elevated lactic acid level, focus of infection diverticulitis. Significant hypotension on arrival requiring pressors. Weaning off pressors today and likely will be able to transfer out of ICU Fluid boluses started in the emergency department Continue Zosyn Blood and sputum cultures pending MRSA PCR pending Appears to be resolving Reduce fluids Status: Acute (2) Diverticulitis of sigmoid colon: Continue Zosyn Start clear liquids Status: Acute (3) Pneumonia: IV Zosyn Blood and sputum culture Combivent as needed Status: Acute Additional A&P Information Hypokalemia. Supplement. Check magnesium level. Diabetes mellitus type 2. Sliding scale insulin. Hold Metformin. Patient has lactic acidosis and sepsis. Hypertension. Currently hypotensive. Hold medication Hyperlipidemia. Continue home medication Full code Lovenox for DVT prophylaxis Attestations Medical Necessity Statement*: Needs continued hospitalization for IV antibiotics secondary to diverticulitis. Coding Level of Care Code Acute Pneumatic System Conveyor Operator for [facility] Diagnoses Sepsis A41.9 Diverticulitis of sigmoid colon K57.32 Pneumonia J18.9
[2020-12-02 11:20] LABS: Magnesium 1.7 mg/dL (1.7-2.3)
[2020-12-02 11:37] LABS: Glucose Point of Care 100 mg/dL (70-110)
[2020-12-02 14:34] LABS: Coronavirus Test Green County Not Detected
--- NOTE | 2020-12-02 16:42 | PC.NURSE ---
TRANSFER Pt transferred from ICU to PA via w/c. Assisted patient to bed, med surg nurse at bedside during time of transfer. Pt stable at time of transfer. No c/o voiced.
--- NOTE | 2020-12-02 16:50 | PC.RESP ---
Pulmonary Rehab information sent to patient.
[2020-12-02 17:20] LABS: Glucose Point of Care 82 mg/dL (70-110)
[2020-12-02] MEDS: enoxaparin 40 mg/0.4 mL Syringe SUBCUT (18:06)
--- NOTE | 2020-12-02 18:34 | PC.NURSE ---
pt resting in bed. has water , scds, and heart monitor in place.
[2020-12-02] MEDS: acetaminophen 325 mg Tablet 650 MG PO (20:20)
[2020-12-02] MEDS: morphine 4 mg/mL SDV 1 mL 2 MG IVP (20:23)
--- NOTE | 2020-12-02 20:51 | PC.NURSE ---
V/S: AT BEGINNING OF SHIFT THE PATIENT REPORTED FEELING WARM AND WANTED HIS TEMP TAKEN. DAY SHIFT NURSE LIO TOOK TEMP AND IT WAS 100.3 ORAL. SHE PROVIDED ICE WATER AND COOL WASH CLOTH. AT 2009 THE COMPONENT OVERHAUL OPERATOR REPORTED TO THIS NURSE THE PATIENT HAD A TEMP OF 103.0 ORAL. PRN TYLENOL PROVIDED ALONG WITH PRN MORPHINE PER PATIENT REQUEST FOR PAIN.
[2020-12-02 20:55] LABS: Glucose Point of Care 94 mg/dL (70-110)
[2020-12-02] MEDS: metoprolol tartrate 1 mg/1 mL SDV 5 mL 5 MG IV (23:12)
[2020-12-03] VITALS (10 sets, daily range): BP systolic 98–125; BP diastolic 52–76; PULSE 71–110; RESP 16–24; TEMP 36.7–37.6; O2SAT 94–98
[2020-12-03] MEDS: piperacillin-tazobactam 3.375 GM in sodium chloride 0.9% (plus) 50 ML IV ×3 (02:48→18:20)
[2020-12-03 06:33] LABS: Glucose Point of Care 88 mg/dL (70-110)
[2020-12-03] MEDS: famotidine 20 mg/2 mL INJ IVP ×2 (06:38→18:23)
[2020-12-03] MEDS: aspirin 81 mg EC Tablet PO (06:38)
[2020-12-03] MEDS: primidone 50 mg Tablet PO ×2 (06:38→18:21)
[2020-12-03] MEDS: gemfibrozil 600 mg Tablet PO ×2 (06:38→18:23)
[2020-12-03 06:48] LABS: Basophils # 0.1 10^3/uL (0.0-0.1); Basophils % 0.5 %; Eosinophils # 0.1 10^3/uL (0.0-0.8); Eosinophils % 0.9 %; Hematocrit 40.5 % (42.0-52.0); Lymphocytes # 0.7 10^3/uL (0.8-4.8); Lymphocytes % 5.9 %; Mean Corpuscular HGB Conc 32.1 g/dL (30.0-36.0); Mean Corpuscular Volume 96.7 fL (80-94); Mean Platelet Volume 10.7 fL (7.4-10.4); Monocytes # 0.7 10^3/uL (0.2-0.9); Monocytes % 5.9 %; Neutrophils # 10.39 10^3/uL (1.8-7.7); Neutrophils % 86.1 %; Nucleated Red Blood Cells % 0 %; Platelet Count 129 10^3/cmm (130-400); Red Blood Count 4.19 10^6/uL (4.1-5.3); Red Cell Distribution Width 13.2 % (12.1-15.1); White Blood Count 12.1 10^3/uL (4.0-10.0)
[2020-12-03 07:06] LABS: Alanine Aminotransferase 25 U/L (0-41); Albumin Level 2.9 g/dL (3.5-5.2); Alkaline Phosphatase 59 IU/L (40-130); Aspartate Amino Transferase 24 U/L (0-40); Blood Urea Nitrogen 11 mg/dL (8-23); Calcium 8.4 mg/dL (8.5-10.5); Carbon Dioxide 20 mmol/L (22-29); Chloride 110 mmol/L (98-107); Globulin 2.7 g/dL (1.3-4.6); Glucose 91 mg/dL (65-115); Osmolality Calculated 281 mOsm/kg (285-295); Sodium 136 mmol/L (136-145); Total Bilirubin 0.6 mg/dL (0.15-1.2); Total Protein 5.6 g/dL (6.6-8.7)
[2020-12-03 07:09] LABS: Anion Gap 10.1 (5-19); Potassium 4.1 mmol/L (3.5-5.1)
--- NOTE | 2020-12-03 07:26 | PC.NURSE ---
I asked the patient if hewould like to get up in a chair for breakfast. he stated no that he would sit on the side of the bed
--- NOTE | 2020-12-03 07:39 | PC.NURSE ---
SHIFT ASSESSMENT: AT APPROXIMATELY 2200 THE PATIENT WAS RECORDED ON TELE OF RUNNING UP TO 180'S ON THE MONITOR. FIELD HUMAN RESOURCES MANAGER HOSPITALIST NOTIFIED AND VERBAL ORDERS GIVEN FOR 5 MG OF IV METOPROLOL X1. THE CONVERTED DOWN TO THE 120'S. WHEN THE PATIENT WOULD GET UP TO BSC OR USE URINAL, THE PATIENTS HEART RATE WOULD CLIMB. WITH THIS OCCURRENCE, THE DECISION WAS MADE TO KEEP PATIENT IN BED THIS MORNING.
--- NOTE | 2020-12-03 09:58 | P.PN_ITS ---
Subjective Subjective: Interval history: Treatment reports he is doing okay. Still occasionally some left lower quadrant pain. Overall better. Medications: Reviewed: Yes Vitals/I&O/Wt Last Vital Signs Temp 99.5 F 12/03/20 07:27 Pulse 83 12/03/20 09:00 Resp 16 12/03/20 09:00 BP 112/76 12/03/20 07:27 Pulse Ox 94 12/03/20 09:00 12/02/20 12/03/20 12/03/20 22:59 06:59 14:59 Intake Total 1100 / 3097.003 660 / 660 Output Total 750 / 1150 750 / 1900 300 / 300 Balance -750 / 847.003 350 / 1197.003 360 / 360 Weight last 48 hrs Weight 112.672 kg Weight 108.862 kg Physical Exam Narrative: EXAM NARRATIVE: General exam is a white male. No apparent distress Neck is supple no lymphadenopathy or thyromegaly Cardiovascular regular rate and rhythm without murmur. Borderline tachycardic Lungs clear no wheezing or crackles Abdomen is soft, positive bowel sounds. Slight tenderness today. Extremities no cyanosis clubbing or edema, cap refill brisk less than 2 seconds Data : 12/03/20 06:25 12/03/20 06:25 Micro: Microbiology 12/01/20 09:50 Blood Culture - Preliminary Blood Gram Negative Rods 12/01/20 09:50 Blood Culture - Preliminary Blood Gram Negative Rods A&P Assessment and plan (1) Sepsis: Evidence of sepsis with elevated heart rate, fever, elevated lactic acid level, focus of infection diverticulitis. Significant hypotension on arrival requiring pressors. Weaning off pressors today and likely will be able to transfer out of ICU Fluid boluses started in the emergency department Continue Zosyn Blood culture demonstrating gram-negative rods. Await identification and sensitivity. Norberto blood culture today MRSA PCR pending Appears to be resolving Reduce fluids Status: Acute (2) Diverticulitis of sigmoid colon: Continue Zosyn Advance to full liquids Status: Acute (3) Pneumonia: IV Zosyn Blood and sputum culture Combivent as needed Status: Acute Additional A&P Information Hypokalemia. Resolved with supplementation Diabetes mellitus type 2. Sliding scale insulin. Hold Metformin. Patient has lactic acidosis and sepsis. Hypertension. Currently hypotensive. Hold medication Hyperlipidemia. Continue home medication Full code Lovenox for DVT prophylaxis [facility] Needs continued hospitalization for IV antibiotics secondary to sepsis. Coding Level of Care Code Acute Orthopedic Physician Assistant for [facility] Fwd Diagnoses Sepsis A41.9 Diverticulitis of sigmoid colon K57.32 Pneumonia J18.9
[2020-12-03 13:34] LABS: Glucose Point of Care 122 mg/dL (70-110)
[2020-12-03 16:46] LABS: Glucose Point of Care 92 mg/dL (70-110)
[2020-12-03] MEDS: enoxaparin 40 mg/0.4 mL Syringe SUBCUT (18:23)
[2020-12-03] MEDS: sodium chlor 0.9% + KCl 20 mEq 20 MEQ/1,000 ML BAG 75 MEQ IV (18:24)
[2020-12-03 20:46] LABS: Glucose Point of Care 86 mg/dL (70-110)
[2020-12-03] MEDS: acetaminophen 325 mg Tablet 650 MG PO (20:47)
[2020-12-03] MEDS: metoprolol tartrate 25 mg Tablet 12.5 MG PO (20:48)
[2020-12-04] VITALS (8 sets, daily range): BP systolic 95–127; BP diastolic 60–82; PULSE 68–83; RESP 16–21; TEMP 36.7–37.2; O2SAT 94–97
[2020-12-04] MEDS: piperacillin-tazobactam 3.375 GM in sodium chloride 0.9% (plus) 50 ML IV (02:20)
[2020-12-04 06:19] LABS: Basophils % 0.6 %; Eosinophils # 0.1 10^3/uL (0.0-0.8); Eosinophils % 1.4 %; Hematocrit 39.3 % (42.0-52.0); Hemoglobin 12.9 g/dL (11.7-16.6); Lymphocytes # 0.6 10^3/uL (0.8-4.8); Lymphocytes % 8.9 %; Mean Corpuscular HGB Conc 32.8 g/dL (30.0-36.0); Mean Corpuscular Hemoglobin 30.8 pg (28.0-34.0); Mean Corpuscular Volume 93.8 fL (80-94); Mean Platelet Volume 10.8 fL (7.4-10.4); Monocytes # 0.4 10^3/uL (0.2-0.9); Monocytes % 6.5 %; Neutrophils # 5.45 10^3/uL (1.8-7.7); Nucleated Red Blood Cells % 0 %; Platelet Count 129 10^3/cmm (130-400); Red Blood Count 4.19 10^6/uL (4.1-5.3); Red Cell Distribution Width 13.1 % (12.1-15.1); White Blood Count 6.6 10^3/uL (4.0-10.0)
[2020-12-04] MEDS: aspirin 81 mg EC Tablet PO (06:27)
[2020-12-04] MEDS: famotidine 20 mg/2 mL INJ IVP (06:27)
[2020-12-04] MEDS: gemfibrozil 600 mg Tablet PO (06:27)
[2020-12-04] MEDS: primidone 50 mg Tablet PO (06:27)
[2020-12-04 06:45] LABS: Alanine Aminotransferase 22 U/L (0-41); Albumin Level 3.4 g/dL (3.5-5.2); Alkaline Phosphatase 52 IU/L (40-130); Anion Gap 11.7 (5-19); Aspartate Amino Transferase 18 U/L (0-40); Blood Urea Nitrogen 8 mg/dL (8-23); Calcium 8.6 mg/dL (8.5-10.5); Carbon Dioxide 24 mmol/L (22-29); Chloride 104 mmol/L (98-107); Globulin 2.7 g/dL (1.3-4.6); Glucose 87 mg/dL (65-115); Osmolality Calculated 280 mOsm/kg (285-295); Potassium 3.7 mmol/L (3.5-5.1); Sodium 136 mmol/L (136-145); Total Bilirubin 0.7 mg/dL (0.15-1.2); Total Protein 6.1 g/dL (6.6-8.7)
[2020-12-04 06:50] LABS: Glucose Point of Care 97 mg/dL (70-110)
--- NOTE | 2020-12-04 07:03 | PC.NURSE ---
Report to Betsey REYNAGA
--- NOTE | 2020-12-04 10:00 | P.DS_ITS ---
Discharge Providers Date of Admission: 12/01/20 11:55 Date of Discharge: December 04, 2020 Attending Provider at Admission: Aaron Villatoro MD Attending Provider at Discharge: Aaron Villatoro MD Primary Care Provider: Adolph Bond DO Diagnoses at Discharge Discharge Diagnosis (1) Sepsis: Status: Acute (2) Diverticulitis of sigmoid colon: Status: Acute (3) Pneumonia: Status: Acute Reason for Visit Reason for Visit: SOB/N/V/Fever Hospital Course Hospital Course Treatment is a 70-year-old white male who presented to the hospital with fever, some shortness of breath, hypotension and evidence of diverticulitis per CT scan of abdomen and pelvis. There was some concern originally for Covid, and he ultimately tested negative with PCR. He was placed in the ICU, on pressors and on IV Zosyn. With this treatment he improved fairly rapidly. He was able to wean off pressors. And MRSA PCR of the sputum was done which was negative. Blood cultures ultimately grew E. coli, pansensitive. Repeat cultures were negative at time of discharge. By time of discharge she was afebrile for over 48 hours. White blood cell count that went up at day 2 of hospitalization had come back down to normal. He was able to eat without difficulty. He had passed 1 stool during his hospital stay with a slight amount of blood but did not have any recurrent hematochezia or melena. Hemoglobin remained stable. I asked that he discuss with his primary care provider getting a colonoscopy in 6 weeks, and determining whether or not he qualified for surgery for his diverticulitis. He will finish 10 days of oral ciprofloxacin as well as Flagyl. CTA was also done demonstrating no pulmonary embolism. Venous duplex lower extremities demonstrated no DVT. Physical Exam Narrative: EXAM NARRATIVE: General exam no apparent distress Cardiovascular regular rate and rhythm without murmur Lungs clear Abdomen is soft, positive bowel sounds Extremities no cyanosis clubbing or edema Discharge Data Data Completed and Pending: Completed Studies During Hospitalization Category Date Time Status CT abdomen pelvis w con* [id number] Stat Cat Scan 12/01/20 09:[address] angio chest PE protcl [id number] Stat Cat Scan 12/01/20 07:52 Completed XR chest 1V fabian ble [id number] Stat Exams 12/01/20 06:42 [place] [id number] Stat Ultrasound 12/01/20 09:39 Completed Pending at discharge Category Date Time Status Blood Culture Sta t Lab 12/01/20 09:50 Results Blood Culture Sta t Lab 12/03/20 10:53 Results Sputum Culture an d Gram Stain Ibrahima ne Lab 12/03/20 10:30 Ordered Labs from last 24 hours 12/04/20 12/04/20 12/04/20 06:33 05:21 05:21 WBC 6.6 RBC 4.19 Hgb 12.9 Hct 39.3 L MCV 93.8 MCH 30.8 MCHC 32.8 RDW 13.1 Plt Count 129 L MPV 10.8 H Neut % (Auto) 82.0 Lymph % (Auto) 8.9 [place] % (Auto) 6.5 Eos % (Auto) 1.4 Baso % (Auto) 0.6 Neut # (Auto) 5.45 Lymph # (Auto) 0.6 L [place] # (Auto) 0.4 Eos # (Auto) 0.1 Baso # (Auto) 0.0 Nucleated RBC % (a uto) 0 Nucleated RBCs # 0.0 Sodium 136 Potassium 3.7 Chloride 104 Carbon Dioxide 24 Anion Gap 11.7 BUN 8 Creatinine 0.7 GFR Calculation Not Reportable Glucose 87 POC Glucose 97 Calculated Osmolal ity 280 L Calcium 8.6 Total Bilirubin 0.7 AST 18 ALT 22 Alkaline Phosphata se 52 Total Protein 6.1 L Albumin 3.4 L Globulin 2.7 Misc Test Referenc e 12/03/20 12/03/20 12/03/20 20:40 16:32 11:06 WBC RBC Hgb Hct MCV MCH MCHC RDW Plt Count MPV Neut % (Auto) Lymph % (Auto) [place] % (Auto) Eos % (Auto) Baso % (Auto) Neut # (Auto) Lymph # (Auto) [place] # (Auto) Eos # (Auto) Baso # (Auto) Nucleated RBC % (a uto) Nucleated RBCs # Sodium Potassium Chloride Carbon Dioxide Anion Gap BUN Creatinine GFR Calculation Glucose POC Glucose 86 92 122 H Calculated Osmolal ity Calcium Total Bilirubin AST ALT Alkaline Phosphata se Total Protein Albumin Globulin Misc Test Referenc e 12/01/20 18:30 WBC RBC Hgb Hct MCV MCH MCHC RDW Plt Count MPV Neut % (Auto) Lymph % (Auto) [place] % (Auto) Eos % (Auto) Baso % (Auto) Neut # (Auto) Lymph # (Auto) [place] # (Auto) Eos # (Auto) Baso # (Auto) Nucleated RBC % (a uto) Nucleated RBCs # Sodium Potassium Chloride Carbon Dioxide Anion Gap BUN Creatinine GFR Calculation Glucose POC Glucose Calculated Osmolal ity Calcium Total Bilirubin AST ALT Alkaline Phosphata se Total Protein Albumin Globulin Misc Test Referenc e See comment Vitals: Last Vital Signs Temp 98.0 F 12/04/20 08:00 Pulse 76 12/04/20 09:26 Resp 17 12/04/20 09:26 BP 124/78 12/04/20 08:00 Pulse Ox 96 12/04/20 09:26 Discharge Plan Discharge Patient Disposition: Home Condition: Stable Prescriptions: New ciprofloxacin HCl [Cipro] 500 mg tablet 500 mg PO BID Qty: 20 RF: 0 metronidazole [Flagyl] 500 mg tablet 500 mg PO QID Qty: 28 RF: 0 Continued (DME) Lift chair recliner See Rx Instructions .Route .MEDSUPPLY Qty: 1 RF: 0 metformin 500 mg Tablet 250 mg PO BID@, RF: 0 primidone 50 mg Tablet 50 mg PO BID@ RF: 0 gemfibrozil [Lopid] 600 mg Tablet 600 mg PO BID@, RF: 0 nitroglycerin 0.4 mg tablet, sublingual 0.4 mg sublingual PRN MDD chest pain RF: 0 omeprazole magnesium [Prilosec OTC] 20 mg Tablet,Delayed Release (Dr/Ec) 20 mg PO DAILY@19 RF: 0 metoprolol tartrate 25 mg Tablet 25 mg PO BID@ RF: 0 hydrochlorothiazide 12.5 mg Tablet 12.5 mg PO DAILY@06 RF: 0 Aspir-81 81 mg Tablet,Delayed Release (Dr/Ec) 81 mg PO DAILY@06 RF: 0 ProAir HFA 90 mcg/actuation Hfa Aerosol Inhaler 2 puff INHALATION QID PRN (Reason: Shortness Of Breath) RF: 0 Discharge Orders: Discharge Order (Routine); Ordered 12/04/20 Ordered By: Aaron Villatoro Referrals: Adolph Bond DO [Primary Care Provider] - 4-7 days (Will need follow-up colonoscopy in approximately 6 weeks. Will need to discuss whether surgery for diverticulitis is warranted.) Discharge Diet: Diabetic and Soft Mechanical Discharge Activity: Increase activity as tolerated Activity Restrictions/Additional Instructions: Take all medicine as prescribed, completing entire course of antibiotics. Return for any difficulties or concerns. Discharge Attestations Time Spent in Discharge Care*: greater than 30 min Quality Metrics Clinical Quality Measures During this hospital stay, did patient experience: None Coding Level of Care Code Acute Side Show Entertainer for [facility] Fwd Diagnoses Sepsis A41.9 Diverticulitis of sigmoid colon K57.32 Pneumonia J18.9
--- NOTE | 2020-12-04 10:12 | PC.SOCIAL ---
*IMM UPDATE* Gave patient IMM update. Provided copy of page 2 of IMM @ 1002 Initialed, dated, timed and placed in chart.
[2020-12-04 11:46] LABS: Glucose Point of Care 93 mg/dL (70-110)
== END 2020-12-04 12:15 | disposition home or self-care (01) | DRG 871 ==
LOC: ER 13:40 → ICU 16:57 → MEDSURG 12-02 16:53
PROVIDERS: Admitting Provider Internal Medicine; Emergency Provider Family Medicine; PCP Electrodiagnostic Medicine; Visit Provider Internal Medicine
DX: A41.9 Sepsis, unspecified organism (principal); J18.9 Pneumonia, unspecified organism; K57.32 Diverticulitis of large intestine without perforation or abscess without bleeding; J44.0 Chronic obstructive pulmonary disease with (acute) lower respiratory infection; I10 Essential (primary) hypertension; G47.33 Obstructive sleep apnea (adult) (pediatric); E11.9 Type 2 diabetes mellitus without complications; I95.9 Hypotension, unspecified; Z20.822 Contact with and (suspected) exposure to COVID-19; Z79.82 Long term (current) use of aspirin; Z79.84 Long term (current) use of oral hypoglycemic drugs; E78.5 Hyperlipidemia, unspecified
CPT/HCPCS: 12345; 36415; 36416; 36600; 71045; 71275; 74177; 80053; 81001; 82803; 82962; 83605; 83735; 84484; 85025; 85378; 87040; 87077; 87081; 87186; 87205; 87426; 87635; 87641; 87804; 93005; 93970; 96372; 99284; J0744; J1650; J2270; J2543; J3475; J3490; J7030; Q9967; S0030

== ENCOUNTER → 2021-02-24 09:21 | Outpatient (BNVA) | payer OTHER, SELFPAY | PROVIDERS: PCP Electrodiagnostic Medicine; Visit Provider Orthopaedic Surgery | DX: Z98.890 Other specified postprocedural states (principal); Z87.81 Personal history of (healed) traumatic fracture; X58.XXXD Exposure to other specified factors, subsequent encounter; S72.142D Displaced intertrochanteric fracture of left femur, subsequent encounter for closed fracture with routine healing | CPT/HCPCS: 73502 ==

== ENCOUNTER → 2021-03-12 13:39 | Outpatient (BNVA) | payer OTHER, SELFPAY | PROVIDERS: PCP Electrodiagnostic Medicine; Visit Provider Orthopaedic Surgery | DX: Z01.812 Encounter for preprocedural laboratory examination (principal); Z20.822 Contact with and (suspected) exposure to COVID-19 | CPT/HCPCS: 87635 ==

== ENCOUNTER 2021-03-18 06:49 | Day surgery (SDC) | payer OTHER, SELFPAY ==
[2021-03-17 14:37] VITALS: BMI 31.1
[2021-03-18] VITALS (19 sets, daily range): BP systolic 87–168; BP diastolic 61–103; PULSE 76–112; RESP 12–20; TEMP 36.2–36.6; O2SAT 94–100
--- NOTE | 2021-03-18 | SCC_ITS ---
Procedure Done: Removal deep hardware left hip (complication of stripped distal screw quite extensive surgical dissection to remove that screw and overgrowth of bone about the proximal nail complicated removal of the nail requiring considerable additional time and blood loss. 250.4 seconds of fluoroscopic guidance, for a cumulative dose of 61.68 mGy, was provided to Dr. Bansal by the radiology department. C-arm images of the LEFT hip were saved for the patient's permanent record. COREY
--- NOTE | 2021-03-18 07:15 | P.ANESASSM_ITS ---
Pre-Anesthetic Assessment Pre-Anesthetic Assessment: Height/Weight: Height 1.83 m Weight 104.326 kg Temp Pulse Resp BP Pulse Ox 97.1 F L 83 20 H 168/103 94 03/18/21 07:00 03/18/21 07:00 03/18/21 07:00 03/18/21 07:00 03/18/21 07:00 Preop Diagnosis: Painful hardware left hip Proposed Procedure: Operation Date: 03/18/21 08:25 Proposed Procedures p Hardware Removal Hip Screw 43491 Z98.890(Left) - Vasquez Bansal MD Was Beta Maritza taken within 24 hours: N/A Was Clonidine taken within 24 hours: N/A Last intake: Intake Last Liquid Date 03/17/21 Last Liquid Time 20:00 Last Solid Date 03/17/21 Last Solid Time 18:15 Social: Social History: No alcohol and No tobacco Exam: Pre-Anes Outpt Exam: alert, oriented x 3, clear to auscultation bilater ally and regular rate & rhythm Airway: Submandibular: WNL Cervical ROM: Other (limited due to cervical obesity) MP: 3 Pulmonary: Pulmonary: COPD and SOB CV/HEM: CV/HEM: CAD and HTN : : None reported Hepatic: Hepatic: None reported GI: GI: GERD Comments: well controlled with meds Metabolic: Metabolic: DM Musc/skel: Musc/skel: None reported Neuropsych: Neuropsych: None reported Anesthetic Plan: ASA status: 3 Anesthesia: General PFSH Anesthesia PFSH: Medical History COPD (chronic obstructive pulmonary disease) Diabetes mellitus Essential tremor Hyperlipidemia Hypertension Intertrochanteric fracture of left hip Postoperative day #2, doing well. Obstructive sleep apnea Surgical History History of back surgery History of knee surgery Status post-operative repair of closed fracture of left hip Family History Other Diabetes Social History Smoking and tobacco status: never smoked Alcohol intake: current Alcohol intake frequency: 0-2 Drinks per Day Data Anesthesia Cardiac Studies: No Data to Display
[2021-03-18 07:24] LABS: Glucose Point of Care 203 mg/dL (70-110)
[2021-03-18] MEDS: sodium chloride 0.9% 1,000 ML 30 ML IV (07:30)
--- NOTE | 2021-03-18 08:12 | W.PM.OPSUD ---
Surgery/Procedure H&P Update DATE OF PROCEDURE: March 18, 2021 DATE H&P PERFORMED: 02/24/21 PREOP DIAGNOSIS: Painful hardware left hip PLANNED PROCEDURE: Operation Date: 03/18/21 08:25 Proposed Procedures p Hardware Removal Hip Screw 79315 Z98.890(Left) - Vasquez Bansal MD
--- NOTE | 2021-03-18 10:21 | P.OP_ITS ---
Operative Report Date of procedure: March 18, 2021 Pre-op Diagnosis: Painful hardware left hip Post-op diagnosis: same Post-op Diagnosis: Painful hardware left hip Post-op Findings: Same Procedure Done: Removal deep hardware left hip (complication of stripped distal screw quite extensive surgical dissection to remove that screw and overgrowth of bone about the proximal nail complicated removal of the nail requiring considerable additional time and blood loss. Procedure should be billed to account for complexity of case. Pathology: none sent Anesthesia: General Estimated blood loss (mL): 500 Complications: None Findings: The patient's proximal femur appeared to have gone on to union. Condition: stable Disposition: PACU Procedure: The patient was taken to the operating room and given a general anesthesia. His left hip was placed in traction on the fracture table. He was given 2 g of Ancef. Initially the proximal incision was opened up over a distance of approximately 4 cm and dissection carried down to the greater trochanter. The nail was identified using fluoroscopy and a all however soft tissue material in the canal did not allow removal of the locking bolt. Next a 3 cm long incision was made over the leg screw scar and dissection carried down to the leg screw. It was secured with the sheet metal duct worker supervisor wrench and easily removed. Next a 2 cm long incision was initially made over the distal locking bolt. [place] was easily found on the femur however unfortunately was a strict and could not be removed with a conventional screwdriver. Ultimately this necessitated extension of the excision to approximately 7 cm in length. A vice poker manager could be placed on the screw and it was able to be removed. Attention was then focused on the proximal nail. The handle could not be and engaged however and extractor tool could be threaded in to the proximal stent to the nail and the nail incompletely backed out toward be grabbed with a vice poker manager and definitively removed. The stripped out distal screw and soft tissue overlying the nail added considerable time difficulty blood loss and complications to the surgical case. Wounds were then irrigated with saline. Deep tissue was closed with 0 Vicryl. Subcutaneous tissues were closed with 2-0 Vicryl. The skin was closed with skin giuseppe. The patient was extubated and taken to recovery room in stable condition.
--- NOTE | 2021-03-18 10:31 | XR_ITS ---
WS: [id number] Left hip, C-arm fluoroscopy view, 03/18/2021 Clinical Data: S/P ORIF LEFT HIP Comparison: Pelvis and left hip, 02/24/2021. Findings: The left hip nail and proximal left intramedullary robbin were removed. XR/XR hip LT 2-3V wo/w pel* [id number] Impression: Removal of orthopedic hardware from a left hip. Tonnis classification: grade 0: normal radiographs
[2021-03-18] MEDS: fentaNYL 50 mcg/mL INJ 2mL IVP ×2 (11:01→11:06)
[2021-03-18] MEDS: HYDROcodone-acetaminophen 5-325 mg Tablet 1 TAB PO (11:47)
--- NOTE | 2021-03-18 12:23 | PC.NURSE ---
pt sitting on side of bed. states feels blah. pt became pale . laid pt back down . pt drinking water. states will try to get up again in a few minutes.
--- NOTE | 2021-03-18 12:29 | ANE.PACU2 ---
Inpatient post-anesthesia follow up: Airway intact: Yes Vital signs: Temperature 97.3 F Pulse Rate 96 Respiratory Rate 18 Blood Pressure 123/77 Pulse Oximetry 94 Oxygen Delivery Me thod Room Air Oxygen Flow Rate 8 Fraction of Inspir ed Oxygen Hydration adequate: Yes Nausea and vomiting: No Pain level: 4 Mental status: Baseline
--- NOTE | 2021-03-18 12:45 | PC.NURSE ---
pt sitting on side of bed. blood pressure 87/61. pt states still feels funny . pt using urinal. anesthesia notified of blood pressure.
[2021-03-18] MEDS: sodium chloride 0.9% 500 ML 999 ML IV (13:00)
--- NOTE | 2021-03-18 13:01 | PC.NURSE ---
pt laying back down. blood pressure 108/73. 500 cc bolus infusing per anesthesia order.
--- NOTE | 2021-03-18 13:46 | PC.NURSE ---
DR. GRAY NOTIFIED OF DECREASE IN BLOOD PRESSURE WHEN SITTING. ORDERS RECEIVED FOR ALBUMIN
[2021-03-18] MEDS: albumin 12.5 GM/250 ML VIAL IV (14:48)
--- NOTE | 2021-03-18 14:54 | SUR.PHASEII ---
no blood noted on surgical dressing.
--- NOTE | 2021-03-18 15:37 | SUR.PHASEII ---
patient B/P 124/84 ,HR 112 sitting up. denies dizziness, nausea.
== END 2021-03-18 16:05 | disposition home or self-care (01) ==
PROVIDERS: PCP Electrodiagnostic Medicine; Visit Provider Orthopaedic Surgery
PROC: (CPT 20680; principal; 2021-03-18 08:05)
DX: T84.84XA Pain due to internal orthopedic prosthetic devices, implants and grafts, initial encounter (principal); J44.9 Chronic obstructive pulmonary disease, unspecified; I25.10 Atherosclerotic heart disease of native coronary artery without angina pectoris; I10 Essential (primary) hypertension; K21.9 Gastro-esophageal reflux disease without esophagitis; E11.9 Type 2 diabetes mellitus without complications; E78.5 Hyperlipidemia, unspecified; G47.33 Obstructive sleep apnea (adult) (pediatric); Z79.82 Long term (current) use of aspirin; Z79.84 Long term (current) use of oral hypoglycemic drugs
CPT/HCPCS: 20680; 36416; 73502; 76000; 82962; J1100; J2250; J2405; J2704; J3010; J3490; J7030; J7040; P9041

== ENCOUNTER → 2021-04-14 11:43 | Outpatient (BNVA) | payer OTHER, SELFPAY | PROVIDERS: PCP Electrodiagnostic Medicine; Visit Provider Orthopaedic Surgery | DX: Z48.89 Encounter for other specified surgical aftercare (principal); Z87.81 Personal history of (healed) traumatic fracture | CPT/HCPCS: 73502 ==

== ENCOUNTER 2022-10-12 09:44 | Oncology outpatient (recurring) (ONCR) | payer OTHER, SELFPAY ==
--- NOTE | 2022-10-12 10:23 | N.ONRAD NP_ITS ---
Radiation Oncology Consultation Patient Name: Cory Alvarez Date of : 1950 Date of Service: 10/12/2022 Attending Physician: Mekhi Franco M.D. Cory Alvarez was seen in consultation this afternoon at the request of the [facility] for consideration of prostate radiotherapy in the management of a recently diagnosed prostate cancer. He initially was identified to have an elevated PSA level (4.5 ng/mL) in December of 2021. A transrectal ultrasound-guided biopsy of the prostate gland performed on August 18, 2022 (medical records were requested from the [facility] and personally reviewed in [facility]) identified a prostatic volume of 29.4 g. Biopsies diagnosed a prostatic adenocarcinoma with a Gower score of 3+4 (grade group 2) involving 48% of the sample from the left apex, and 21% of the core from the left base. Also reported was an adenocarcinoma with a Dany score of 6 (grade group 1) in the right mid core, right base, and left mid core samples. An abdominopelvic CT scan not identify metastatic disease. Patient was evaluated for prostate radiotherapy. I discussed The [place] [employer] On Cancer Staging for prostate cancer and specifically the patient???s clinical stage IIB (T1CN0) favorable intermediate-risk prostate cancer corresponding to the patient's diagnosis. I also reviewed The National Comprehensive Cancer Network Guidelines recommending active surveillance, external beam radiotherapy, brachytherapy, or surgery I also ordered a PSA and testosterone levels. If he elects external beam radiotherapy, I would anticipate a 4 week course of hypofractionated prostate radiotherapy. Prior to commencement of radiotherapy, a planning CT scan will be acquired to delineate the clinical target volumes. I also discussed potential adverse events related to radiotherapy. The patient has verbalized understanding would like to proceed as advised. Signed by: Dr. Mekhi Franco 10/12/2022 10:21:58 AM
[2022-10-12 11:29] LABS: Testosterone Total 405.2 ng/dL (193-740)
== END 2022-10-29 23:59 | disposition home or self-care (01) ==
PROVIDERS: PCP Electrodiagnostic Medicine; Visit Provider Radiology Radiation Oncology
DX: C61 Malignant neoplasm of prostate (principal)
CPT/HCPCS: 36415; 84153; 84403; 99205

== ENCOUNTER 2022-11-28 09:40 | Oncology outpatient (recurring) (ONCR) | payer OTHER, SELFPAY ==
--- NOTE | 2022-11-08 | CT_ITS ---
Radiation Therapy Planning CT images; total exam DLP: 1423.28 mGy-cm MTDD
--- NOTE | 2022-11-14 10:42 | ONCRAD TMN_ITS ---
Radiation Oncology Treatment Management Note Patient Name: Cory Alvarez Date of : 1950 Date of Service: 11/14/2022 Attending Physician: Mekhi Franco M.D. 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 He initially was identified to have an elevated PSA level (4.5 ng/mL) in December of 2021. A transrectal ultrasound-guided biopsy of the prostate gland performed on August 18, 2022 identified a prostatic volume of 29.4 g. Biopsies diagnosed a prostatic adenocarcinoma with a Dany score of 3+4 (grade group 2) involving 48% of the sample from the left apex, and 21% of the core from the left base. Also reported was an adenocarcinoma with a [place] score of 6 (grade group 1) in the right mid core, right base, and left mid core samples. An abdominopelvic CT scan not identify metastatic disease. The patient has received 3 Gy of a prescribed 60 Herrera to the prostate and seminal vesicles with an intensity modulated radiotherapy plan utilizing a step and shoot treatment technique. Upon review of systems, he denied any gastrointestinal has persistent dysuria. On physical examination, the patient weighed 216 lbs. His temperature was 97.8 ???F and the blood pressure was 117/76 mmHg. The pulse was 60 bpm and his respiratory rate was 16. Continue prostate radiotherapy as prescribed. I will order a urinalysis. Signed by: Dr. Mekhi Franco 11/14/2022 10:43:42 AM
[2022-11-15 11:12] LABS: Add Urine Culture? No; Bilirubin Urine Neg (Negative); Blood Urine Neg (Negative); Glucose Urine UA Norm (Normal); Ketones Urine Negative (Negative); Leukocyte Esterase Urine Negative (Negative); Nitrate Urine Negative (Negative); Protein Urine Neg (Negative); Urine Appearance Clear (CLEAR); Urine Color Yellow (Yellow); Urobilinogen Urine Norm (Negative); pH Urine 6 (5-7)
--- NOTE | 2022-11-21 10:31 | ONCRAD TMN_ITS ---
Radiation Oncology Treatment Management Note Patient Name: Cory Alvarez Date of : 1950 Date of Service: 11/21/2022 Attending Physician: Mekhi Franco M.D. 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 He initially was identified to have an elevated PSA level (4.5 ng/mL) in December of 2021. A transrectal ultrasound-guided biopsy of the prostate gland performed on August 18, 2022 identified a prostatic volume of 29.4 g. Biopsies diagnosed a prostatic adenocarcinoma with a Dany score of 3+4 (grade group 2) involving 48% of the sample from the left apex, and 21% of the core from the left base. Also reported was an adenocarcinoma with a [place] score of 6 (grade group 1) in the right mid core, right base, and left mid core samples. An abdominopelvic CT scan not identify metastatic disease. The patient has received 18 Gy of a prescribed 60 Herrera to the prostate and seminal vesicles with an intensity modulated radiotherapy plan utilizing a step and shoot treatment technique. Upon review of systems, he denied any complaints. On physical examination, the patient weighed 215 lbs. His temperature was 97.8 ???F and the blood pressure was 126/75 mmHg. The pulse was 59 bpm and his respiratory rate was 16. There was no erythema in the skin of the treatment vivas. Continue prostate radiotherapy as planned. Signed by: Dr. Mekhi Franco 11/21/2022 10:30:01 AM
--- NOTE | 2022-11-28 10:16 | ONCRAD TMN_ITS ---
Radiation Oncology Treatment Management Note Patient Name: Cory Alvarez Date of : 1950 Date of Service: 11/28/2022 Attending Physician: Mekhi Franco M.D. 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 He initially was identified to have an elevated PSA level (4.5 ng/mL) in December of 2021. A transrectal ultrasound-guided biopsy of the prostate gland performed on August 18, 2022 identified a prostatic volume of 29.4 g. Biopsies diagnosed a prostatic adenocarcinoma with a Dany score of 3+4 (grade group 2) involving 48% of the sample from the left apex, and 21% of the core from the left base. Also reported was an adenocarcinoma with a [place] score of 6 (grade group 1) in the right mid core, right base, and left mid core samples. An abdominopelvic CT scan not identify metastatic disease. The patient has received 30 Gy of a prescribed 60 Herrera to the prostate and seminal vesicles with an intensity modulated radiotherapy plan utilizing a step and shoot treatment technique. Upon review of systems, he did not describe any symptoms related to treatment. On physical examination, the patient weighed 219 lbs. His temperature was 97 ???F and the blood pressure was 137/81 mmHg. The pulse was 60 bpm and his respiratory rate was 17. There was no erythema in the skin of the treatment vivas. Continue prostate radiotherapy as prescribed. Signed by: Dr. Mekhi Franco 11/28/2022 10:15:49 AM
== END 2022-11-29 23:59 | disposition home or self-care (01) ==
PROVIDERS: PCP Electrodiagnostic Medicine; Visit Provider Radiology Radiation Oncology
DX: Z51.0 Encounter for antineoplastic radiation therapy (principal); C61 Malignant neoplasm of prostate; Z79.899 Other long term (current) drug therapy
CPT/HCPCS: 77300; 77301; 77334; 77336; 77338; 77385; 81001; 99024; 99213

== ENCOUNTER 2022-12-13 09:41 | Oncology outpatient (recurring) (ONCR) | payer OTHER, SELFPAY ==
--- NOTE | 2022-12-05 10:32 | ONCRAD TMN_ITS ---
Radiation Oncology Treatment Management Note Patient Name: Cory Alvarez Date of : 1950 Date of Service: 12/05/2022 Attending Physician: Mekhi Franco M.D. 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 He initially was identified to have an elevated PSA level (4.5 ng/mL) in December of 2021. A transrectal ultrasound-guided biopsy of the prostate gland performed on August 18, 2022 identified a prostatic volume of 29.4 g. Biopsies diagnosed a prostatic adenocarcinoma with a [place] score of 3+4 (grade group 2) involving 48% of the sample from the left apex, and 21% of the core from the left base. Also reported was an adenocarcinoma with a Dany score of 6 (grade group 1) in the right mid core, right base, and left mid core samples. An abdominopelvic CT scan not identify metastatic disease. The patient has received 42 Gy of a prescribed 60 Herrera to the prostate and seminal vesicles with an intensity modulated radiotherapy plan utilizing a step and shoot treatment technique. Upon review of systems, he denied any symptoms related to radiotherapy. On physical examination, the patient weighed 218 lbs. His temperature was 96.8 ???F and the blood pressure was 135/88 mmHg. The pulse was 59 bpm and his respiratory rate was 16. There was no erythema in the skin of the treatment vivas. Continue prostate radiotherapy as planned. Signed by: Dr. Mekhi Franco 12/05/2022 10:31:42 AM
--- NOTE | 2022-12-12 10:35 | ONCRAD TMN_ITS ---
Radiation Oncology Treatment Management Note Patient Name: Cory Alvarez Date of : 1950 Date of Service: 12/12/2022 Attending Physician: Mekhi Franco M.D. 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 He initially was identified to have an elevated PSA level (4.5 ng/mL) in December of 2021. A transrectal ultrasound-guided biopsy of the prostate gland performed on August 18, 2022 identified a prostatic volume of 29.4 g. Biopsies diagnosed a prostatic adenocarcinoma with a Dany score of 3+4 (grade group 2) involving 48% of the sample from the left apex, and 21% of the core from the left base. Also reported was an adenocarcinoma with a [place] score of 6 (grade group 1) in the right mid core, right base, and left mid core samples. An abdominopelvic CT scan not identify metastatic disease. The patient has received 57 Gy of a prescribed 60 Herrera to the prostate and seminal vesicles with an intensity modulated radiotherapy plan utilizing a step and shoot treatment technique. Upon review of systems, he reported hemorrhoidal symptoms. On physical examination, the patient weighed 216 lbs. His temperature was 97.1 ???F and the blood pressure was 118/73 mmHg. The pulse was 56 bpm and his respiratory rate was 16. Continue prostate radiotherapy as prescribed. Signed by: Dr. Mekhi Franco 12/12/2022 10:34:07 AM
--- NOTE | 2022-12-13 10:13 | N.ONRD TS_ITS ---
Radiation OncologyTreatment Summary Patient Name: Cory Alvarez Date of : 1950 Date of Service: 12/13/2022 Attending Physician: Mekhi Franco M.D. 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 He initially was identified to have an elevated PSA level (4.5 ng/mL) in December of 2021. A transrectal ultrasound-guided biopsy of the prostate gland performed on August 18, 2022 identified a prostatic volume of 29.4 g. Biopsies diagnosed a prostatic adenocarcinoma with a Dany score of 3+4 (grade group 2) involving 48% of the sample from the left apex, and 21% of the core from the left base. Also reported was an adenocarcinoma with a Dany score of 6 (grade group 1) in the right mid core, right base, and left mid core samples. An abdominopelvic CT scan not identify metastatic disease. Daily radiotherapy was administered between the dates of November 14, 2022 through December 13, 2022. A prescribed dose of 60 Gy was delivered in 20 fractions encompassing 30 elapsed days. The prostate gland and proximal seminal vesicles were treated utilizing an IMRT plan using a step and shoot treatment technique. The plan arranged seven gantry angles (0???, 41???, 82???, 123???, 237???, 278???, and 319???) replicating an arc. The collimator rotation was 0???. The field sizes measured between 9.8 cm x 9.5 cm to 11 cm x 9.5 cm. The SSDs measured a minimum of 78.5 cm to a maximum of 87.3 cm. The ports delivered 142 MU, 140 MU, 122 MU, 89 MU, 82 MU, 124 MU, and 144 MU corresponding to the gantry angles described. All treatments were performed on the Somoto linear accelerator with an isocentric technique. The dose was calculated by Anisotropic Analytic Algorithm. A photon energy of 6 MV was prescribed. The plan was normalized to deliver 100% of the prescription dose to 95% of the planning target volume. Signed by: Dr. Mekhi Franco 12/13/2022 10:12:00 AM
== END 2022-12-27 23:59 | disposition home or self-care (01) ==
PROVIDERS: PCP Electrodiagnostic Medicine; Visit Provider Radiology Radiation Oncology
DX: Z51.0 Encounter for antineoplastic radiation therapy (principal); C61 Malignant neoplasm of prostate
CPT/HCPCS: 77014; 77336; 77385; 99024

== ENCOUNTER 2023-01-12 08:49 | Outpatient (CLI) | payer OTHER, SELFPAY | END 2023-01-12 08:50 | disposition home or self-care (01) | LOC: LAB 08:56 | PROVIDERS: PCP Electrodiagnostic Medicine; Visit Provider Radiology Radiation Oncology | DX: C61 Malignant neoplasm of prostate (principal) | CPT/HCPCS: 84153 ==

== ENCOUNTER 2023-01-13 09:42 | Oncology outpatient (recurring) (ONCR) | payer OTHER, SELFPAY ==
--- NOTE | 2023-01-13 11:29 | ONCRAD EPV_ITS ---
Radiation Oncology Established Patient Visit Patient: Cory Alvarez [id number] : 1950 Age: 72 Sex: Male Dictated by: Darrell Peña DO Date of Service: 01/13/2023 Referring Physician(s) : Diagnosis: C61 - Malignant neoplasm of prostate, Diagnosed 08/18/2022 (Active) Stage IIB, T1c, N0, M0, P<10, G2 Radiotherapy to Date: Course: Prostate 2022, Treatment Site: Prostate Ca - Fav Int-Risk, Ref. ID: [id number], Energy: 6X, Dose/Fx (cGy): 300, #Fx: , Dose Correction (cGy): 0, Total Dose (cGy): 6,000, Start Date: 11/14/2022, End Date: 12/13/2022, Elapsed Days: 29 Current History: Current Medications: Albuterol Sulfate (sensor), aspirin, benzonatate, gemfibrozil, hydroCHLOROthiazide, lisinopril, metFORMIN HCl, metoprolol Tartrate, nitroglycerin, omeprazole, primidone, tamsulosin HCl. Allergies: No Known Allergies Current Complaints / Review of Systems: . Patient returns today approximately 4 weeks after completion of radiation therapy. He denies any dysuria. He has occasional urgency and small amounts of leakage of urine. He has nocturia x1 or 2. He denies diarrhea, constipation, hemorrhoids, or rectal bleeding. Vital Signs: Performed on 01/13/2023 9:56 AM BMI - 28.21 kg/m2 (high), Height - 72 in, Weight - 208 lbs, Temperature - 96.7 f, Pulse - 59 /min (low), Respiration - 18 /min, O2 Sat - 98 %, Pain - 5, Fatigue - 8 and BP - 130/ 69 mm(hg). Physical Exam: General: Alert and oriented x 3. No acute distress. HEENT: Normocephalic, atraumatic. Extraocular Movements Intact: Pupils Equal, Round, Reactive to Light and Accommodation: Sclerae anicteric. Oral cavity is clear without lesions, masses or ulcers. NECK: Supple without supraclavicular or jugular lymphadenopathy. LUNGS: Clear to auscultation bilaterally without rales, rhonchi or wheeze. HEART: Regular rate and rhythm, normal S1 and S2 without murmur, gallop or rub. MUSCULOSKELETAL: No tenderness or percussion pain over the axial skeleton, scapulae or pelvis. ABDOMEN: Soft, nontender, nondistended without masses or organomegaly. Bowell sounds are present. EXTREMITIES: No peripheral edema is identified. Limited motor and sensory examination are grossly intact and symmetric bilaterally. NEUROLOGIC: Cranial nerves II ???XII are grossly intact. Normal sensation, strength 5/5 in all extremities, normal gait, no ataxia. Performance Status: ECOG 0 Lab: None pending. Pathology: Primary, c61 - malignant neoplasm of prostate, Diagnosed 08/18/2022 (active) stage iib, t1c, n0, m0, p<10, g2. Imaging: See HPI Impression: Mr. Alvarez is recovered well from the acute effects of his external beam radiation therapy. He demonstrates an excellent biochemical response with decrease in PSA from approximately 5 ng/mL to 2.1 ng/mL. I have discussed with him the process of Kegel exercise to strengthen his pelvic floor and the hope of improving his symptom of occasional urinary leakage. The patient has been instructed to continue follow-up with his urologist and primary care physician. He is aware that periodic PSAs will be done to evaluate his continued response to treatment. He has been instructed to contact our office if he has any questions or concerns regarding his radiation therapy. Signed by: 01/13/2023 11:27:56 AM <<Signature on File>> Time spent with patient: 20 minutes CPT Code: CPT Code:
== END 2023-01-27 23:59 | disposition home or self-care (01) ==
PROVIDERS: PCP Electrodiagnostic Medicine; Visit Provider Radiology Radiation Oncology
DX: Z08 Encounter for follow-up examination after completed treatment for malignant neoplasm (principal); Z85.46 Personal history of malignant neoplasm of prostate; Z92.3 Personal history of irradiation
CPT/HCPCS: 99024